=== PATIENT | female | born 1935 | race Caucasian/White ===

== ENCOUNTER 2016-09-26 15:49 | Emergency (ER) | payer MEDICARE ==
[~2016-09-26] VITALS: Wt 56.2 kg
[~2016-09-26 15:49] MED LIST: ATENOLOL25 MG PO; ATENOLOL50 M1 PO; ATENOLOL50 MG PO; B COMPLEX1 EAC1 PO; CLOPIDOGREL75 MG PO; IMDUR SA30 MG PO; LEVOTHYROXIN0.025 MG PO; LEVOTHYROXINE0.05 M1 PO; MELOXICAM15 MG PO; MELOXICAM7.5 MG PO; OMEPRAZOLE DR20 M1 PO; PEPCID20 MG PO; PLAVIX75 M1 PO; PRILOSEC20 M2 PO; PRILOSEC40 M1 PO; VIBRAMYCIN100 MG PO; VITAMIN B-121000 MC1 SL; VITAMIN D50000 I3 PO; VITAMIN D50000 IU PO; ZETIA10 MG PO
== END 2016-09-26 18:18 | disposition home or self-care (01) ==
LOC: ED 15:49
DX: S05.11XA Contusion of eyeball and orbital tissues, right eye, initial encounter (principal); Z88.0 Allergy status to penicillin; Z88.1 Allergy status to other antibiotic agents; Z88.2 Allergy status to sulfonamides; Z79.01 Long term (current) use of anticoagulants; W22.8XXA Striking against or struck by other objects, initial encounter; Y93.89 Activity, other specified; Y92.9 Unspecified place or not applicable; Y99.9 Unspecified external cause status

== ENCOUNTER → 2017-01-07 | Outpatient (CLI) | payer MEDICARE | END | disposition home or self-care (01) | LOC: CT 14:00 | DX: S09.90XA Unspecified injury of head, initial encounter (principal); H53.9 Unspecified visual disturbance; I12.9 Hypertensive chronic kidney disease with stage 1 through stage 4 chronic kidney disease, or unspecified chronic kidney disease; N18.2 Chronic kidney disease, stage 2 (mild); R53.82 Chronic fatigue, unspecified; E03.9 Hypothyroidism, unspecified; E83.52 Hypercalcemia; M11.80 Other specified crystal arthropathies, unspecified site; I25.10 Atherosclerotic heart disease of native coronary artery without angina pectoris; R42 Dizziness and giddiness; X58.XXXA Exposure to other specified factors, initial encounter; Y93.89 Activity, other specified; Y92.89 Other specified places as the place of occurrence of the external cause; Y99.8 Other external cause status ==

== ENCOUNTER 2017-03-09 15:34 | Emergency (ER) | payer MEDICARE ==
[~2017-03-09] VITALS: Ht 152.4 cm; Wt 63.5 kg
[2017-03-09] MEDS ORDERED: ANTIBIOTIC (15:40)
== END 2017-03-09 16:25 | disposition home or self-care (01) ==
LOC: ED 15:34
DX: S00.462A Insect bite (nonvenomous) of left ear, initial encounter (principal); Z88.0 Allergy status to penicillin; Z88.1 Allergy status to other antibiotic agents; Z88.2 Allergy status to sulfonamides; Z79.899 Other long term (current) drug therapy; W57.XXXA Bitten or stung by nonvenomous insect and other nonvenomous arthropods, initial encounter; Y93.9 Activity, unspecified; Y92.9 Unspecified place or not applicable; Y99.9 Unspecified external cause status

== ENCOUNTER 2017-06-10 18:21 | Inpatient (IN) | payer MEDICARE ==
[~2017-06-10] VITALS: Ht 154.9 cm; Wt 59.9 kg
[~2017-06-10 18:21] MED LIST changes: +ANTIBIOTIC; +LEVOTHYROXINE50 MCG PO; -VITAMIN D50000 I3 PO; +VITAMIN D50000 UNIT PO
[2017-06-10 18:25] VITALS: BP 125/65
[2017-06-10 19:09] VITALS: BP 124/64
[2017-06-10 19:21] LABS: BASO # 0.1 10*3/uL (0.0-0.1); BASO % 0.6 % (0.0-1.0); EOS % 0.5 % (1.0-4.0); HEMATOCRIT 38.4 % (37.0-47.0); HEMOGLOBIN 12.7 g/dl (12.0-16.0); LYMPH # 1.1 10*3/uL (1.3-4.4); LYMPH % 14.5 % (27.0-41.0); MEAN CELL VOLUME 99.2 fl (81.0-99.0); MEAN CORPUSCULAR HGB 32.8 pg (27.0-31.0); MEAN CORPUSCULAR HGB CONC 33.1 g/dl (33.0-37.0); MEAN PLATELET VOLUME 10.3 fl (9.6-12.3); MONO # 0.7 10*3/uL (0.1-1.0); MONO % 9.1 % (3.0-9.0); NEUT # 5.8 10*3/uL (2.3-7.9); PLATELET COUNT AUTOMATED 202 10*3/uL (130-400); RED BLOOD COUNT 3.87 10*6/uL (4.10-5.10); WHITE BLOOD COUNT 7.7 10*3/uL (4.8-10.8)
[2017-06-10 19:32] LABS: ACT PARTIAL THROMBO TIME 23.1 SECONDS (20.8-31.5); INTERNATIONAL NORM RATIO 0.9 (2.0-3.5)
[2017-06-10 19:37] VITALS: BP 124/64
[2017-06-10 19:38] LABS: ALKALINE PHOSPHATASE 81 U/L (45-117); BUN 22 mg/dl (7-24); CHLORIDE 107 mmol/L (98-107); CREATININE 1.03 mg/dL (0.55-1.02); MAGNESIUM 2.1 mg/dL (1.5-2.1); POTASSIUM 3.7 mmol/L (3.5-5.1); SGOT/AST 22 IU/L (3-35); SGPT/ALT 24 U/L (12-78); SODIUM 141 mmol/L (136-145); TOTAL PROTEIN 7.4 gm/dL (6.4-8.2)
[2017-06-10 19:41] LABS: TROPONIN I < 0.015 ng/ml (<0.045)
[2017-06-10 20:00] VITALS: BP 121/61
[2017-06-10 20:49] VITALS: BP 132/85
[2017-06-10 21:20] VITALS: BP 121/61
[2017-06-11] VITALS: BP 114/57
--- NOTE | 2017-06-11 02:38 | NUR ---
[facility] WILL NEED TO BE CALLED IN AM TO VERIFY DOSAGE ON VIT D AND WHICH DAY OF THE WEEK SHE TAKES IT.
[2017-06-11 06:36] LABS: BASO % 0.4 % (0.0-1.0); EOS % 0.8 % (1.0-4.0); HEMATOCRIT 33.1 % (37.0-47.0); HEMOGLOBIN 11.1 g/dl (12.0-16.0); LYMPH # 1.7 10*3/uL (1.3-4.4); LYMPH % 33.1 % (27.0-41.0); MEAN CELL VOLUME 98.8 fl (81.0-99.0); MEAN CORPUSCULAR HGB 33.1 pg (27.0-31.0); MEAN CORPUSCULAR HGB CONC 33.5 g/dl (33.0-37.0); MEAN PLATELET VOLUME 9.9 fl (9.6-12.3); MONO # 0.5 10*3/uL (0.1-1.0); NEUT # 2.9 10*3/uL (2.3-7.9); NEUT % 55.5 % (47.0-73.0); PLATELET COUNT AUTOMATED 162 10*3/uL (130-400); RED BLOOD COUNT 3.35 10*6/uL (4.10-5.10); RED CELL DISTRI WIDTH 13.1 % (0-14.5); WHITE BLOOD COUNT 5.2 10*3/uL (4.8-10.8)
[2017-06-11 07:07] LABS: ACT PARTIAL THROMBO TIME 25.5 SECONDS (20.8-31.5)
[2017-06-11 07:10] LABS: ALBUMIN 2.5 gm/dl (3.1-4.5); BUN 18 mg/dl (7-24); CHLORIDE 110 mmol/L (98-107); CHOLESTEROL 165 mg/dL (<200); CREATININE 0.65 mg/dL (0.55-1.02); MAGNESIUM 1.9 mg/dL (1.5-2.1); PHOSPHOROUS 2.7 mg/dL (2.5-4.9); POTASSIUM 3.9 mmol/L (3.5-5.1); SGPT/ALT 17 U/L (12-78); SODIUM 141 mmol/L (136-145); TRIGLYCERIDES 62 mg/dl (<150); VLDL CHOLESTEROL 12 mg/dL (6-40)
[2017-06-11 07:18] LABS: ALKALINE PHOSPHATASE 64 U/L (45-117); FREE T4 1.17 ng/dl (0.76-1.46); HDL CHOLESTEROL 62 mg/dl (40-60); LDL CHOLESTEROL 91 mg/dL (9-159); SGOT/AST 17 IU/L (3-35); THYROID STIM HORMONE (HS) 0.505 uIU/ml (0.358-4.75); TOTAL PROTEIN 6.1 gm/dL (6.4-8.2)
--- NOTE | 2017-06-11 07:47 | NUR ---
[facility] NURSE WAS GIVEN INFORMATION REGARDING NEW CONSULT FOR JÚNIOR SIN ASSISTANT FOOD SERVICE MANAGER WHO IS COVERING FOR DR DUARTE THIS WEEKEND AND STATED SHE WILL NOTIFY HER WHEN SHE MAKES ROUNDS TODAY.
[2017-06-11 07:49] LABS: VITAMIN D, 25-HYDROXY 40.2 ng/mL (30-100)
[2017-06-11 08:00] VITALS: BP 132/78
--- NOTE | 2017-06-11 10:48 | NUR ---
JÚNIOR SIN BOILER OR ENGINE OPERATOR FOR DR DUARTE IN TO ASSESS PT.
[2017-06-11 12:00] VITALS: BP 135/73
--- NOTE | 2017-06-11 14:59 | NUR ---
PT ANXIOUS ABOUT POSSIBLY BEING DISCHARGED TODAY. PT NOW STATES THAT HER ANKLE IS HURTING TO MUCH AND THAT SHE CAN NOT WALK ON IT WELL AT THIS TIME. SHE ALSO WAS ASKING IF HER MELOXICAM CAN BE REORDERED SO SHE CAN TAKE IT NOW. I CALLED AND SPOKE WITH DR ERWIN AND MADE HIM AWARE OF HER CONCERNS.
[2017-06-11] MEDS ORDERED: CRUTCHES (15:32)
--- NOTE | 2017-06-11 15:44 | NUR ---
INSTRUCTED PT ON USE OF CRUTCHES WHICH SHE STATES SHE ALREADY KNOWS HOW TO USE. PT NOW STATES THAT SHE WOULD ALSO LIKE TO HAVE HOME HEALTH SERVICES AT HOME. I NOTIFIED DR ERWIN OF THIS.
[2017-06-11 16:00] VITALS: BP 126/61
--- NOTE | 2017-06-11 17:28 | NUR ---
PT DISCHARGED AT THIS TIME WITH BROTHER VIA WHEELCHAIR TO HOME.
--- NOTE | 2017-06-11 17:28 | NUR ---
Discharge instructions reviewed with patient/family. Patient receptive and verbalizes understanding. Follow-up care arranged. Written instructions given to patient/family. ION SEPULVEDA
== END 2017-06-11 17:28 | disposition home or self-care (01) | DRG 922 ==
LOC: ED 18:21 → 5E 20:53 → EDHOLD 20:53 → 5E 21:02
PROVIDERS: Internal Medicine; Student in an Organized Health Care Education/Training Program; ADMIT Internal Medicine
DX: T67.1XXA Heat syncope, initial encounter (principal); N17.0 Acute kidney failure with tubular necrosis; E44.0 Moderate protein-calorie malnutrition; E78.5 Hyperlipidemia, unspecified; E03.9 Hypothyroidism, unspecified; I10 Essential (primary) hypertension; E11.9 Type 2 diabetes mellitus without complications; M10.9 Gout, unspecified; K21.9 Gastro-esophageal reflux disease without esophagitis; X58.XXXA Exposure to other specified factors, initial encounter; E86.0 Dehydration; S93.401A Sprain of unspecified ligament of right ankle, initial encounter; I25.10 Atherosclerotic heart disease of native coronary artery without angina pectoris; Z88.0 Allergy status to penicillin; Z88.2 Allergy status to sulfonamides; Z88.1 Allergy status to other antibiotic agents; Z79.899 Other long term (current) drug therapy; Z87.440 Personal history of urinary (tract) infections; Z95.818 Presence of other cardiac implants and grafts; Z90.710 Acquired absence of both cervix and uterus; Z82.49 Family history of ischemic heart disease and other diseases of the circulatory system; Z83.3 Family history of diabetes mellitus; Z84.89 Family history of other specified conditions; Y93.89 Activity, other specified; Y92.89 Other specified places as the place of occurrence of the external cause; Y99.8 Other external cause status; Z68.24 Body mass index [BMI] 24.0-24.9, adult

== ENCOUNTER 2017-06-13 15:19 | Inpatient (IN) | payer MEDICARE ==
[~2017-06-13] VITALS: Ht 154.9 cm; Wt 67.6 kg
--- NOTE | ~2017-06-13 | PR ---
[place], [place] PROGRESS NOTE [id number] UNIT #: [id number] ROOM: 503 DOCTOR: JENNIFER TORRES MD BIRTHDATE: [birth year] DOS: 06/16/2017 SUBJECTIVE: The patient is sitting up in bed, does not appear in distress. Denies any ongoing complaint. Slight improvement in overall symptoms. OBJECTIVE: VITAL SIGNS: Blood pressure 143/62, heart rate 60, respiratory rate of 14, temperature 98. NECK: Good upstroke, no bruit. HEART: S1, S2, no rub. LUNGS: Clear to auscultation. EXTREMITIES: Lower extremities, no edema. LABORATORY DATA: White count 5.5, hemoglobin 10.2, potassium 4.4. GFR more than 60%. ASSESSMENT AND PLAN: Presentation with a whole host of nonspecific complaints that is quite recurrent since [address] Meyer's notes. Specifically, the patient does not have any cardiac complaints such as chest pain, chest pressure or any symptomatic palpitation. I doubt there is any contribution from the heart point of view to the patient's complaint. At this stage, I would like to continue with same management and we will prefer the patient to follow up with Dr. Meyer as an outpatient within 2-4 weeks upon discharge. Should the patient requires, we will be happy to see her here in our clinic in [facility]. No further cardiac testing at this time. JENNIFER TORRES MD CM:PNTRANS 14 [phone] JENNIFER TORRES MD 06/16/172156 interface
--- NOTE | ~2017-06-13 | CON ---
[place], [place] REPORT OF CONSULTATION [id number] UNIT #: [id number] ROOM: 503 DOCTOR: CLAYTON VAZQUEZ ED.D (APRIL) BIRTHDATE: [birth year] DOS: 06/15/2017 HISTORY OF PRESENT ILLNESS: The patient is an 82-year-old female, referred by the hospitalist for competency evaluation. At the present time, this patient is on the 5th floor at [facility]. She states she is and has no children. 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 Family physician is Dr. Mckee in [place] and her medical history is pertinent for coronary artery disease, diabetes mellitus, hypertension, GERD, normocytic anemia, malnutrition. Her medications include atenolol, vitamin D, Plavix, Zetia, meloxicam and omeprazole. This patient does not have any substance abuse issues whatsoever. She was awake, alert and oriented in all three spheres. She denies any suicidal ideation or plan and had no delusional thoughts whatsoever. She has some obsessive compulsive disorder issues along with some minor depression, but overall she does fairly well. She does have assistance at her home. She apparently has some cardiac issues going on, which have caused her to feel as though she was going to pass out. They are going to address those here in the hospital to Cardiology. She is certainly competent to make informed healthcare decisions at this time. Again, I have known this patient for many years and her behavior has not changed, but she does have some atypical behaviors and thoughts, but she is not psychotic whatsoever. DIAGNOSES: 1. Obsessive-compulsive disorder. 2. Persistent depressive disorder. RECOMMENDATIONS: In my opinion, this patient is competent to make informed healthcare decisions. Thank you very much for this consult. CLAYTON VAZQUEZ ED.D CM:CONSTR:REPORT OF CONSULTATION 1121 06/15/17 7770 interface
--- NOTE | ~2017-06-13 | CON ---
[place], [place] REPORT [facility] CON[facility]ATION [id number] UNIT #: [id number] ROOM: 503 DOCTOR: BRIAN DANIELLEJENNIFER BIRTHDATE: [birth year] DOS: 06/15/2017 REASON FOR CONSULTATION: Syncope. REQUESTING PHYSICIAN: Dr. Stephen Souza. ASSESSMENTS: 1. Current presentation for dizziness, lightheadedness. 2. Unstable gait. 3. High tendency for falls with no christopher loss of consciousness. 4. No specific cardiac complaint of chest pain, chest pressure, heaviness or tightness. 5. Recent presentation to the Emergency Room with similar complaints. 6. Fatigue and weakness. 7. History of known coronary artery disease, single vessel disease seen and evaluated by Dr. Meyer (status post percutaneous transluminal coronary angioplasty and stent placement in right coronary artery in February 1998). 8. Diabetes. 9. Hyperlipidemia. 10. Reported episode of syncope since April [address] Meyer due to orthostatic hypotension and vasovagal. 11. Recurrent syncope reported in May [address] Meyer. 12. Known history of Meniere's disease. 13. Status post esophageal dilatation in May 2010. PLAN: 1. Cycle cardiac enzymes. 2. Check D-dimer 3. Proceed with an echocardiogram. 4. Continue current medical regimen. 5. No further cardiac testing at this time. 6. Consider physical therapy and rehabilitation. 7. Early followup with Dr. Meyer or our cardiac clinic here in [place] within 2-4 weeks upon discharge. HISTORY OF PRESENT ILLNESS: The patient is a pleasant 82-year-old female well known to our group through Dr. Meyer. The patient apparently has been seen and evaluated with him since 2009. She has extensive medical history with recurrent evaluation for syncope, unsteady gait and coronary artery disease that was stented back in 1997 in the [facility]. Apparently, the patient has recurrent presentation with dizziness, lightheadedness along with unsteady gait that also be reported previously through Dr. Meyer's notes. At no time, the patient had any complaint of chest pain, chest pressure, heaviness or tightness. No left arm pain, jaw pain or back pain. She has very limited functional capacity. The patient is quite a poor historian and quite difficult to obtain exact detailed history regarding her symptoms. No fever, no chills, no night sweats. Maintain good appetite. No weight loss. The patient claims she has no PND, orthopnea or pedal edema. No symptomatic palpitation or any associated dizziness, lightheadedness or near syncope. [place], [place] REPORT OF CONSULTATION NAME: PEPITO LEWIS UNIT #: [id number] ROOM: [facility] DOCTOR: JENNIFER TORRES MD BIRTHDATE: [birth year] PAST MEDICAL HISTORY: As detailed in my assessment. SOCIAL HISTORY: No current tobacco, alcohol or illicit drug abuse. FAMILY HISTORY: Not applicable in view of the patient's age. CURRENT MEDICATIONS: Ditropan, meclizine, Prilosec, Mobic, Synthroid, Lovenox, Zetia, Plavix, Tenormin, Restoril, Zofran, bisacodyl, Fortuna and Tylenol. ALLERGIES: THE PATIENT IS ALLERGIC TO PENICILLIN, SULFA AND ERYTHROMYCIN. REVIEW OF SYSTEMS: The patient currently denies any headache, diplopia, or blurry vision. No fever, no chills, no night sweats. No abdominal pain, no bright blood per rectum or tarry stools. The patient admits to joint pain and muscular pain. Admits to anxiety and depression. No polyuria, no polydipsia, no skin rash. PHYSICAL EXAMINATION: GENERAL: The patient is alert, oriented x3, quite pleasant, in no apparent distress. VITAL SIGNS: Blood pressure 143/62, heart rate 60, respiratory rate of 14 and temperature 98. HEENT: Extraocular muscles intact. Pupils equal, round, reactive to light. Conjunctivae mild pallor. Throat, no petechiae. NECK: Good carotid upstroke. Faint bruit could be heard. HEART: S1, S2 with holosystolic murmur in the left upper sternal border. No rub or sternal heave. CHEST AND BACK: No deformities. LUNGS: Decreased air movement, but no christopher wheezing or rales. ABDOMEN: Obese, soft, nontender, present bowel sounds. LOWER EXTREMITIES: There is no significant edema. NEUROLOGIC: Grossly nonfocal. SKIN: No significant rash. LABORATORY DATA: White count is 3.6, hemoglobin 11.8, potassium 3.9. GFR more than 60. Total cholesterol 147, LDL 78, HDL is 59. Normal thyroid function. Troponin less than 0.015 x 4. JENNIFER TORRES MD CM:CONSTR:REPORT OF CONSULTATION 1913 06/17/17 0907 interface
--- NOTE | ~2017-06-13 | EKG ---
[place], [place] ELECTROCARDIOGRAM REPORT NAME: PEPITO LEWIS UNIT #: [id number] ROOM: 503 DOCTOR: CAMILO NAVARRETE MD BIRTHDATE: [birth year] DOS: 06/13/2017 TIME: 15:54:32 RATE AND RHYTHM: Normal sinus rhythm at 95 beats per minute. PA interval 129 milliseconds. QRS duration 78 milliseconds. Corrected QT interval 445 milliseconds, QRS axis 2. IMPRESSION: Normal sinus rhythm, normal EKG. CAMILO NAVARRETE MD CM:EKGRPT:ELECTROCARDIOGRAM REPORT [id number] 1214 CAMILO NAVARRETE MD
--- NOTE | ~2017-06-13 | PR ---
[place], [place] PROGRESS NOTE NAME: PEPITO LEWIS [facility] #: [id number] UNIT #: [id number] ROOM: 503 DOCTOR: KYLE MARIE MD BIRTHDATE: [birth year] DOS: 06/19/2017 SUBJECTIVE: The patient has been admitted to the hospital with syncopal attack, dehydration, delusion, auditory hallucination and dizziness with psychotic disorder and is gradually getting better. The patient is conscious, alert, and oriented, and she is ambulating, eating fairly good and does not seem to be in any distress. She is eating satisfactorily and she is drinking satisfactorily. OBJECTIVE: VITAL SIGNS: Her blood pressure today is 131/65, pulse 67, respirations 20, temperature 98.7. CHEST: Clear. HEART: Regular. ABDOMEN: Soft. There is no acute distress and she is progressing satisfactorily. KYLE MARIE MD CM:PNTRANS [id number] KYLE MARIE MD 06/20/17 0526 interface
--- NOTE | ~2017-06-13 | CON ---
[place], [place] REPORT OF CONSULTATION [id number] UNIT #: [id number] ROOM: 503 DOCTOR: GLORY DUARTE MD BIRTHDATE: [birth year] DOS: 06/17/2017 CHIEF COMPLAINT: "You are the one that is going to set me free." HISTORY OF PRESENT ILLNESS: This is an 82-year-old white female admitted due to a syncopal episode. The patient apparently has a lengthy psychiatric history and to the best that I can ascertain patient suffers from obsessive compulsive disorder. The patient was seen earlier by Dr. Jarett Larson, psychologist, who deemed her competent and did also diagnose her with the diagnosis of obsessive compulsive disorder and dysthymia. From a psychiatric perspective, the patient gives a rather long history of mild symptoms. Her most pressing issue is her tendency to be obsessive compulsive. There is no suicidality, homicidality, self-injurious thoughts. Cognitive function seems to be fully intact. PAST MEDICAL HISTORY: Remarkable for hypertension, vitamin D deficiency, hyperlipidemia, GERD and the syncopal episodes. MENTAL STATUS: She is alert and oriented to person, place and time. Mood is mildly depressed. Affect is within normal limits. She is nearly pressured in her speech and she is extremely circumstantial giving fine details and re-circulating back to get even more details regarding her history of who she has seen, when she saw them, what she did in each aspect of her life. There are no gross psychotic symptoms noted. No auditory or visual hallucinations noted. No christopher shay or hypomania and as mentioned previously, her memory does seem to be intact. DIAGNOSIS: Obsessive compulsive disorder and dysthymic disorder. PLAN: I did not have the opportunity to discuss the possibility of starting medication with her, however, my thought on this is that she would be resistant. She does follow with Dr. Horacio Martin, a geriatric doctor in the [facility]. I would suggest that she just continue followup with him. There are no grounds at this point for inpatient hospitalization. GLORY DUARTE MD CM:CONSTR:REPORT OF CONSULTATION 1105 06/17/17 2300 interface
--- NOTE | ~2017-06-13 | PR ---
[place], [place] PROGRESS NOTE NAME: PEPITO LEWIS [facility] #: [id number] UNIT #: [id number] ROOM: 503 DOCTOR: KYLE MARIE MD BIRTHDATE: [birth year] DOS: SUBJECTIVE: The patient has been admitted to the hospital with syncopal attack, dehydration, delusions, hallucinations and dizziness with articular regurgitation and internal carotid artery stenosis. She is conscious, alert and oriented, does not seem to be in any distress. She is eating very well and she slept very comfortably last night and has been seen by human resource management instructor and ruled out any acute cardiac problem and has also been seen by Dr. Pastor who has diagnosed with obsessive compulsive disorder and dysthymic disorder, but has not suggested any new medication. OBJECTIVE: VITAL SIGNS: Her blood pressure is 151/78, pulse 65, respirations 20, temperature 98.2. CHEST: Clear. HEART: Regular. ABDOMEN: Soft. EXTREMITIES: Having splint on the right foot and doing fairly good. We will continue with the present treatment and follow her properly. KYLE MARIE MD CM:PNTRANS 0750 0 KYLE MARIE MD 06/18/17920 interface
[~2017-06-13 15:19] MED LIST changes: +CRUTCHES
[2017-06-13 15:25] VITALS: BP 115/62
[2017-06-13 16:00] VITALS: BP 145/74
[2017-06-13 16:16] LABS: BASO % 0.4 % (0.0-1.0); EOS % 0.6 % (1.0-4.0); HEMATOCRIT 36.2 % (37.0-47.0); HEMOGLOBIN 11.8 g/dl (12.0-16.0); LYMPH # 1.3 10*3/uL (1.3-4.4); LYMPH % 18.8 % (27.0-41.0); MEAN CELL VOLUME 99.5 fl (81.0-99.0); MEAN CORPUSCULAR HGB 32.4 pg (27.0-31.0); MEAN CORPUSCULAR HGB CONC 32.6 g/dl (33.0-37.0); MEAN PLATELET VOLUME 10.7 fl (9.6-12.3); MONO # 0.7 10*3/uL (0.1-1.0); MONO % 10.1 % (3.0-9.0); NEUT # 4.8 10*3/uL (2.3-7.9); NEUT % 69.8 % (47.0-73.0); PLATELET COUNT AUTOMATED 197 10*3/uL (130-400); RED BLOOD COUNT 3.64 10*6/uL (4.10-5.10); RED CELL DISTRI WIDTH 13.1 % (0-14.5); WHITE BLOOD COUNT 6.9 10*3/uL (4.8-10.8)
[2017-06-13 16:25] LABS: ACT PARTIAL THROMBO TIME 27.5 SECONDS (20.8-31.5); INTERNATIONAL NORM RATIO 0.9 (2.0-3.5)
[2017-06-13 16:33] LABS: ALBUMIN 2.8 gm/dl (3.1-4.5); ALKALINE PHOSPHATASE 77 U/L (45-117); BUN 19 mg/dl (7-24); CHLORIDE 104 mmol/L (98-107); CREATININE 0.73 mg/dL (0.55-1.02); MAGNESIUM 2.1 mg/dL (1.5-2.1); SGOT/AST 20 IU/L (3-35); SGPT/ALT 15 U/L (12-78); SODIUM 137 mmol/L (136-145); TOTAL PROTEIN 7.7 gm/dL (6.4-8.2)
[2017-06-13 16:36] LABS: TROPONIN I < 0.015 ng/ml (<0.045)
[2017-06-13 18:10] LABS: BILIRUBIN 1+ (NEGATIVE); BLOOD TRACE-LYSED (NEGATIVE); CLARITY SL CLOUDY (CLEAR); COLOR YELLOW (YELLOW); GLUCOSE NEGATIVE (NEGATIVE); KETONE 3+ (NEGATIVE); LEUKO ESTERASE TRACE (NEGATIVE); NITRITE NEGATIVE (NEGATIVE); PH 5.5 (5.0-9.0); SPECIFIC GRAVITY 1.025 (1.005-1.030); UROBILINOGEN 0.2 E.U./dl (0.2-1.0)
[2017-06-13 18:29] LABS: EPITHELIAL CELLS 0-2; RBC 0-2 rbc/hpf (0-2)
[2017-06-13 18:30] LABS: BACTERIA 1+; MUCOUS 1+
--- NOTE | 2017-06-13 20:13 | NUR ---
PT UP TO BATHROOM WITH ASSIST.
[2017-06-13 21:00] VITALS: BP 145/74
--- NOTE | 2017-06-13 21:00 | NUR ---
A 82, admitted to , under the services of CAMILO Rodriguez MD with a diagnosis of DIZZINESS. Chief complaint is DIZZINESS. Patient arrived via WHEELCHAIR from ER. Monitor applied. Initial assessment completed. Vital signs taken and recorded. CAMILO RODRIGUEZ MD notified of admission to the unit. Orders received. See assessment for past medical history, medications and allergies. Patient and/or family oriented to unit. [facility] policy reviewed. Clothing/patient valuable form completed. KENTON ALFARO
--- NOTE | 2017-06-13 21:20 | NUR ---
PATIENT DENIES FLU VACCINATION.
[2017-06-14] VITALS (7 sets, daily range): BP systolic 133–150; BP diastolic 63–79
--- NOTE | 2017-06-14 03:13 | NUR ---
PT C/O H/A REQUESTEED AND ADMINSITERED TYLENOL 650MG PO PRN PER ORDERS WILL MONITOR EFFECTS
[2017-06-14 07:16] LABS: BASO % 0.6 % (0.0-1.0); EOS # 0.1 10*3/uL (0.0-0.4); EOS % 1.2 % (1.0-4.0); HEMATOCRIT 31.4 % (37.0-47.0); HEMOGLOBIN 10.4 g/dl (12.0-16.0); LYMPH # 1.6 10*3/uL (1.3-4.4); LYMPH % 32.4 % (27.0-41.0); MEAN CELL VOLUME 98.1 fl (81.0-99.0); MEAN CORPUSCULAR HGB 32.5 pg (27.0-31.0); MEAN CORPUSCULAR HGB CONC 33.1 g/dl (33.0-37.0); MEAN PLATELET VOLUME 10.9 fl (9.6-12.3); MONO # 0.5 10*3/uL (0.1-1.0); MONO % 10.7 % (3.0-9.0); NEUT # 2.7 10*3/uL (2.3-7.9); NEUT % 54.9 % (47.0-73.0); PLATELET COUNT AUTOMATED 185 10*3/uL (130-400); RED CELL DISTRI WIDTH 13.2 % (0-14.5); WHITE BLOOD COUNT 4.9 10*3/uL (4.8-10.8)
[2017-06-14 07:53] LABS: ALBUMIN 2.3 gm/dl (3.1-4.5); ALKALINE PHOSPHATASE 64 U/L (45-117); BUN 15 mg/dl (7-24); CHLORIDE 108 mmol/L (98-107); CHOLESTEROL 147 mg/dL (<200); CREATININE 0.56 mg/dL (0.55-1.02); FREE T4 1.34 ng/dl (0.76-1.46); HDL CHOLESTEROL 59 mg/dl (40-60); LDL CHOLESTEROL 78 mg/dL (9-159); MAGNESIUM 2.1 mg/dL (1.5-2.1); PHOSPHOROUS 3.2 mg/dL (2.5-4.9); POTASSIUM 3.9 mmol/L (3.5-5.1); SGOT/AST 17 IU/L (3-35); SGPT/ALT 13 U/L (12-78); SODIUM 140 mmol/L (136-145); TOTAL PROTEIN 6.4 gm/dL (6.4-8.2); TRIGLYCERIDES 48 mg/dl (<150); VLDL CHOLESTEROL 10 mg/dL (6-40)
[2017-06-14 07:54] LABS: ACT PARTIAL THROMBO TIME 28.4 SECONDS (20.8-31.5); INTERNATIONAL NORM RATIO 0.9 (2.0-3.5)
[2017-06-14 07:58] LABS: THYROID STIM HORMONE (HS) 0.982 uIU/ml (0.358-4.75)
[2017-06-14 08:01] LABS: VITAMIN D, 25-HYDROXY 33.5 ng/mL (30-100)
--- NOTE | 2017-06-14 08:30 | NUR ---
Guest Laundry Attendant in to talk to patient. Patient states lives at HOME IN 3 STORY ALONE with . There are 1 steps in the home. Physician: DR NAVARRETE Pharmacy: Home health services: REQUESTS [facility] NURSE AND PT Patient's level of ADLs: MINIMAL ASSIST Patient has working utilities: YES DME: NILDA Follow-up physician's appointment after d/c: PREFERS TO MAKE HER OWN APPT Does patient want to access PORTAL?: Discharge plan HOME WITH HOME HEALTH. SANDRINE PHILLIPS DISCUSSED SNF STAY PT JUST WENT HOME FEW DAYS AGO. REFUSES AND ACCEPTS HOME HEALTH AND CHOOSES [facility]
--- NOTE | 2017-06-14 08:30 | NUR ---
PT ALSO HAS PRIVATE HELP FOR LAWN WORK AND HOUSE WORK. [facility] HAS 3 CLEANING LADIES AND A ENERGY AND CONSERVATION TECHNICIAN!
--- NOTE | 2017-06-14 12:31 | NUR ---
DR. CARLSON NOTIFIED THAT PATIENTS ORTHOS WERE NEG. NO CONCERNS OR C/O OF DIZZINESS FROM PATIENT.
--- NOTE | 2017-06-14 15:20 | NUR ---
PATIENT CONSULT CALLED TO DR. DUARTE. CLARIBEL FROM HIS OFFICE TOOK PATIENT INFORMATION AND STATED SHE WOULD PASS IT ON TO DR. DUARTE. I STATED TO HAVE DR. DUARTE CALL ME FOR ANY QUESTIONS. NO CONCERNS AT THIS TIME.
--- NOTE | 2017-06-14 15:24 | NUR ---
DR. VAZQUEZ CALLED AND NOTIFIED OF CONSULT. HE STATED HE WOULD BE IN TOMORROW TO SEE THE PATIENT. DR. DUARTE CALLED AND NOTIFIED THAT CONSULT CALL WAS A MISTAKE. NO OTHER CONCERNS.
[2017-06-15] VITALS: BP 133/61
--- NOTE | 2017-06-15 00:42 | NUR ---
24 HR chart check completed.
[2017-06-15 07:02] LABS: BASO % 0.6 % (0.0-1.0); EOS # 0.1 10*3/uL (0.0-0.4); HEMATOCRIT 32.1 % (37.0-47.0); HEMOGLOBIN 10.2 g/dl (12.0-16.0); LYMPH # 1.8 10*3/uL (1.3-4.4); LYMPH % 32.5 % (27.0-41.0); MEAN CORPUSCULAR HGB 32.3 pg (27.0-31.0); MEAN CORPUSCULAR HGB CONC 31.8 g/dl (33.0-37.0); MEAN PLATELET VOLUME 11.1 fl (9.6-12.3); MONO # 0.5 10*3/uL (0.1-1.0); MONO % 9.2 % (3.0-9.0); NEUT % 55.5 % (47.0-73.0); PLATELET COUNT AUTOMATED 175 10*3/uL (130-400); RED BLOOD COUNT 3.16 10*6/uL (4.10-5.10); RED CELL DISTRI WIDTH 13.2 % (0-14.5); WHITE BLOOD COUNT 5.5 10*3/uL (4.8-10.8)
[2017-06-15 07:08] LABS: MEAN CELL VOLUME 101.6 fl (81.0-99.0)
[2017-06-15 07:13] LABS: BUN 15 mg/dl (7-24); CHLORIDE 111 mmol/L (98-107); CREATININE 0.53 mg/dL (0.55-1.02); POTASSIUM 4.4 mmol/L (3.5-5.1); SODIUM 141 mmol/L (136-145)
[2017-06-15 08:00] VITALS: BP 133/64
--- NOTE | 2017-06-15 10:11 | NUR ---
AFTER SEVERAL INSTRUCTIONS AND EDUCATION OF MEDICATIONS DUE THIS AM, PT REFUSED ALL 10 AM MEDS
--- NOTE | 2017-06-15 11:16 | NUR ---
DR. TORRES'S OFFICE NOTIFIED OF CONSULT.
[2017-06-15 12:00] VITALS: BP 130/65
[2017-06-15 14:39] LABS: BILIRUBIN NEGATIVE (NEGATIVE); BLOOD NEGATIVE (NEGATIVE); CLARITY CLEAR (CLEAR); COLOR YELLOW (YELLOW); GLUCOSE NEGATIVE (NEGATIVE); KETONE NEGATIVE (NEGATIVE); LEUKO ESTERASE NEGATIVE (NEGATIVE); NITRITE NEGATIVE (NEGATIVE); SPECIFIC GRAVITY <= 1.005 (1.005-1.030); UROBILINOGEN 0.2 E.U./dl (0.2-1.0)
[2017-06-15 14:52] LABS: BACTERIA TRACE; MUCOUS 1+; RBC 0-2 rbc/hpf (0-2)
--- NOTE | 2017-06-15 15:59 | NUR ---
PHYSICAL THERAPY Physical Therapy Evaluation completed this date. See eval document for complete details. Will begin PT intervention to address impairments of muscle weakness, decreased functional mobility I, and difficulty ambulating. Recommend SNF on d/c as pnt lives alone in a multi-story home[place] [address] based on chart review and PT evaluation. Staci Martinez, PT
[2017-06-15 16:00] VITALS: BP 140/73
--- NOTE | 2017-06-15 17:50 | NUR ---
MEDICATED WITH TYLENOL FOR HEADACHE SHE RATES A 6 ON THE PAIN SCALE.
[2017-06-15 20:00] VITALS: BP 132/54
[2017-06-16] VITALS: BP 153/73
--- NOTE | 2017-06-16 01:12 | NUR ---
24 HR chart check completed.
[2017-06-16 08:00] VITALS: BP 140/70
--- NOTE | 2017-06-16 09:00 | NUR ---
case management visits with patient, master planner will notify [facility] when patient is medically stable for discharge
--- NOTE | 2017-06-16 09:17 | NUR ---
PHYSICAL THERAPY Lainey was seen this AM 1:1 for her physical therapy session. Transfer supine/sit CG X 1, sitting balance supervision x 1, while putting on her shoes with right ankle brane. Sit/stand and standing balance with wheeled walker MIN A X 1, Pt has IV. Gait only 24' X 1, and wanting to go back to bed at this. End with act Ex to bilateral LE of marching, LAQ's, and ankle pumps working in 20 reps each. Pt's room needed prepared before her therapy gait, there was no LOB with this gait. YARA DOWNING RESEARCH ANALYST.
[2017-06-16 12:00] VITALS: BP 124/57
--- NOTE | 2017-06-16 14:41 | NUR ---
NOTIFIED OF CONSULT AND WILL BE IN TO SEE THE PATIENT TOMORROW.
--- NOTE | 2017-06-16 15:30 | NUR ---
Occupational Therapy evaluation completed this date on with full eval to follow. Precautions include obsessive compulsive disorder, impulsive, RLE brace, fall risk d/t impulsivity, low complexity level 60321. Recommend no further OT at this time and return to home at [facility]. Thank you for this referral. Miryam Jalloh OTR/l
[2017-06-16 16:00] VITALS: BP 143/62
[2017-06-16 20:00] VITALS: BP 128/68
[2017-06-17] VITALS: BP 152/67
--- NOTE | 2017-06-17 00:05 | NUR ---
24 HR chart check completed.
[2017-06-17 04:00] VITALS: BP 146/66
[2017-06-17 06:26] LABS: BASO % 0.5 % (0.0-1.0); EOS # 0.1 10*3/uL (0.0-0.4); EOS % 1.6 % (1.0-4.0); HEMOGLOBIN 10.8 g/dl (12.0-16.0); LYMPH # 1.4 10*3/uL (1.3-4.4); LYMPH % 24.7 % (27.0-41.0); MEAN CELL VOLUME 99.7 fl (81.0-99.0); MEAN CORPUSCULAR HGB 32.6 pg (27.0-31.0); MEAN CORPUSCULAR HGB CONC 32.7 g/dl (33.0-37.0); MEAN PLATELET VOLUME 10.8 fl (9.6-12.3); MONO # 0.5 10*3/uL (0.1-1.0); NEUT # 3.6 10*3/uL (2.3-7.9); NEUT % 63.8 % (47.0-73.0); PLATELET COUNT AUTOMATED 200 10*3/uL (130-400); RED BLOOD COUNT 3.31 10*6/uL (4.10-5.10); RED CELL DISTRI WIDTH 13.1 % (0-14.5); WHITE BLOOD COUNT 5.6 10*3/uL (4.8-10.8)
[2017-06-17 06:42] LABS: BUN 12 mg/dl (7-24); CHLORIDE 108 mmol/L (98-107); CREATININE 0.63 mg/dL (0.55-1.02); POTASSIUM 4.4 mmol/L (3.5-5.1); SODIUM 141 mmol/L (136-145)
[2017-06-17 08:00] VITALS: BP 142/66
--- NOTE | 2017-06-17 10:31 | NUR ---
PHYSICAL THERAPY Lainey seen this AM 1:1 for her therapy session. Pt very slow with everything and is a "talked". Transfer supine/sit CG X 1, with wanting to put her shoes on herself, brace on her right shoe but got then on. Sit/stand up on wheeled walker standing balance MIN A X 1. Followed by gait total 120' X 1, MIN/MOD ARABIC TEACHER X 1, with W/W, cues for gait, walker, turn safety. Pt not safe up ambulating independent. Pt with call light phone and her aid in to make her bed, treatment tiem 24 min. YARA DOWNING BACK ROLLER.
[2017-06-17 12:00] VITALS: BP 150/80
[2017-06-17 16:00] VITALS: BP 127/47
[2017-06-17 20:00] VITALS: BP 119/56
--- NOTE | 2017-06-17 20:00 | NUR ---
ASSUMED CARE OF PATIENT. ASSESSMENT COMPLETE. RESTING IN BED. EDUCATION PROVIDED ON MEDICATIONS PER PT REQUEST. PT APPEARS ANXIOUS. TEST RESULTS REVIEWED WITH PATIENT AT THIS TIME WELL. CALL LIGHT IN REACH. WILL CONTINUE TO MONITOR.
[2017-06-18] VITALS: BP 151/78
[2017-06-18 04:00] VITALS: BP 152/80
[2017-06-18 08:00] VITALS: BP 160/58
--- NOTE | 2017-06-18 08:43 | NUR ---
PATIENT RESFUSED ZETIA THIS AM. STATES SHE TOOK HER OWN PILL.
[2017-06-18 12:00] VITALS: BP 131/67
--- NOTE | 2017-06-18 14:03 | NUR ---
PATIENT RESTING. REFUSED SOME OF AM MEDS.
[2017-06-18 16:00] VITALS: BP 136/53
[2017-06-18 20:00] VITALS: BP 126/65
--- NOTE | 2017-06-18 20:30 | NUR ---
PATIENT OOB IN CHAIR. STATES SHE FEELS MUCH BETTER THAN SHE DID LAST NIGHT. DENIES PAIN AT THIS TIME. SHE SAYS SHE IS MUCH HAPPIER WITH HER MEDICATIONS NOW AND REALIZED THAT SHE NEEDS TO LISTEN TO THE NURSES AND DOCTORS AND TAKE THE PILLS WHEN THEY ARE SCHEDULED. NO VOICED COMPLAINTS AT THIS TIME. CALL LIGHT IS IN REACH. WILL MONITOR.
[2017-06-19] VITALS: BP 131/86
--- NOTE | 2017-06-19 02:30 | NUR ---
C/O HEADACHE RATING A 5, MEDICATED WITH TYLENOL PO PER PRN ORDER. CALL LIGHT WITHIN REACH. WILL MONITOR FOR EFFECTIVENESS
--- NOTE | 2017-06-19 03:30 | NUR ---
PATIENT STATES EARLIER TYLENOL WAS SOMEWHAT EFFECTIVE. SHE STILL HAS A HEADACHE BUT IT IS NOT BAD.
--- NOTE | 2017-06-19 03:50 | NUR ---
PATIENT RESTING QUIETLY. C/O A SLIGHT HEADACHE WHICH SHE HAS PREVIOUSLY BEEN MEDICATED FOR AND DOES NOT WANT ANYTHING ELSE FOR IT RIGHT NOW. NO FURTHER COMPLAINTS. CALL LIGHT IS IN REACH. WILL MONITOR.
--- NOTE | 2017-06-19 06:23 | NUR ---
NO ACUTE EVENTS OVER NIGHT. SHE SLEPT THROUGHOUT SHIFT WITH ONLY C/O HEADACHE. CURRENTLY RESTING IN BED. RESPIRATIONS EASY/REGULAR. NO SXS OF DISTRESS. CALL LIGHT IN REACH.
[2017-06-19 08:00] VITALS: BP 146/60
--- NOTE | 2017-06-19 08:00 | NUR ---
RESTING WITH NO COMPLAINTS.
--- NOTE | 2017-06-19 10:00 | NUR ---
AM MEDS TAKEN.
[2017-06-19 12:00] VITALS: BP 143/73
[2017-06-19 16:00] VITALS: BP 125/60
--- NOTE | 2017-06-19 17:41 | NUR ---
Patient resting quietly with no c/o discomfort. Respirations easy and regular. Vital signs stable. No overt distress. SCHUYLER HARRISON
[2017-06-19 20:00] VITALS: BP 133/67
[2017-06-20] VITALS: BP 155/68
--- NOTE | 2017-06-20 03:22 | NUR ---
PATIENT ASLEEP IN BED AT THIS TIME. RESPIRATIONS EASY, NO S/S OF DISTRESS NOTED. ON ROOM AIR. WILL CONTINUE TO MONITOR.
[2017-06-20 06:20] LABS: BASO % 0.5 % (0.0-1.0); EOS # 0.2 10*3/uL (0.0-0.4); EOS % 2.9 % (1.0-4.0); HEMATOCRIT 36.4 % (37.0-47.0); HEMOGLOBIN 12.1 g/dl (12.0-16.0); LYMPH # 2.1 10*3/uL (1.3-4.4); MEAN CELL VOLUME 100.3 fl (81.0-99.0); MEAN CORPUSCULAR HGB 33.3 pg (27.0-31.0); MEAN CORPUSCULAR HGB CONC 33.2 g/dl (33.0-37.0); MEAN PLATELET VOLUME 10.3 fl (9.6-12.3); MONO # 0.6 10*3/uL (0.1-1.0); NEUT % 51.1 % (47.0-73.0); PLATELET COUNT AUTOMATED 242 10*3/uL (130-400); RED BLOOD COUNT 3.63 10*6/uL (4.10-5.10); RED CELL DISTRI WIDTH 13.2 % (0-14.5); WHITE BLOOD COUNT 5.9 10*3/uL (4.8-10.8)
[2017-06-20 08:00] VITALS: BP 164/62
--- NOTE | 2017-06-20 08:45 | NUR ---
PHYSICAL THERAPY Lainey was seen this AM 1:1 for her therapy session and doing better then last Tuesday. Pt was sitting up indepenedent on the side of her bed shoes on and ready to gait. Transfer sit/stand and up on wheeled walker MIN A X 1. Then gait total 230' X 1, MIN OVEN EQUIPMENT REPAIRER X 1, cueing for gait, walker, turn and balance safety. Pt up in her bedside chair followed by going over act Ex to bilateral LE of marching, LAQ's, and ankle pumps. Pt with her brace on left foot/ankle, breakfast in at this time. YARA DOWNING NURSERYMAN ASSISTANT.
[2017-06-20 12:00] VITALS: BP 126/56
--- NOTE | 2017-06-20 13:20 | NUR ---
DR. CARLSON CALLED AND NOTIFIED THAT ORTHOS WERE NEG. DR. CARLSON STATED HE WOULD PUT IN THE ORDER FOR DISCHARGE BUT STATED TO WAIT FOR SS TO CONFIRM HOME HEALTH.
[2017-06-20] MEDS ORDERED: MECLIZINE HCL25 M2 PO (14:47)
--- NOTE | 2017-06-20 15:30 | NUR ---
Patient is being discharged to home with a new order for home health with PT. Received order, [facility] for [facility].
--- NOTE | 2017-06-20 15:30 | NUR ---
PATIENT IS BEING DC TO HOME WITH HOME HEALTH. IV ACCESS REMOVED. PATIENT BELONGINGS READY FOR DISCHARGE. NO CONCERNS AT THIS TIME.
--- NOTE | 2017-06-20 16:21 | NUR ---
Discharge instructions reviewed with patient/family. Patient receptive and verbalizes understanding. Follow-up care arranged. Written instructions given to patient/family. KENTON ALFARO
--- NOTE | 2017-06-21 08:11 | NUR ---
PHYSICAL THERAPY CO-SIGN I approve of the Phyical Therapy notes written above. BJ MOLINA PT
== END 2017-06-20 16:21 | disposition home or self-care (01) | DRG 640 ==
LOC: ED 15:19 → EDHOLD 19:35 → 5E 19:35
PROVIDERS: Hospitalist; Internal Medicine; Nurse Practitioner Family; ADMIT Internal Medicine
DX: E86.0 Dehydration (principal); E43 Unspecified severe protein-calorie malnutrition; E11.65 Type 2 diabetes mellitus with hyperglycemia; E11.51 Type 2 diabetes mellitus with diabetic peripheral angiopathy without gangrene; I65.21 Occlusion and stenosis of right carotid artery; R44.3 Hallucinations, unspecified; N39.0 Urinary tract infection, site not specified; E87.8 Other disorders of electrolyte and fluid balance, not elsewhere classified; I35.1 Nonrheumatic aortic (valve) insufficiency; D53.9 Nutritional anemia, unspecified; M79.671 Pain in right foot; M79.672 Pain in left foot; R31.29 Other microscopic hematuria; E66.3 Overweight; M11.20 Other chondrocalcinosis, unspecified site; I25.10 Atherosclerotic heart disease of native coronary artery without angina pectoris; E78.5 Hyperlipidemia, unspecified; E03.9 Hypothyroidism, unspecified; I10 Essential (primary) hypertension; F34.1 Dysthymic disorder; F42.9 Obsessive-compulsive disorder, unspecified; K21.9 Gastro-esophageal reflux disease without esophagitis; N32.81 Overactive bladder; Z88.0 Allergy status to penicillin; Z88.2 Allergy status to sulfonamides; Z88.8 Allergy status to other drugs, medicaments and biological substances; Z79.899 Other long term (current) drug therapy; Z90.710 Acquired absence of both cervix and uterus; Z98.61 Coronary angioplasty status; Z90.89 Acquired absence of other organs; Z82.49 Family history of ischemic heart disease and other diseases of the circulatory system; Z83.3 Family history of diabetes mellitus; Z84.89 Family history of other specified conditions; Z68.28 Body mass index [BMI] 28.0-28.9, adult

== ENCOUNTER 2017-07-12 15:46 | Emergency (ER) | payer MEDICARE ==
[~2017-07-12] VITALS: Ht 167.6 cm; Wt 63.5 kg
--- NOTE | ~2017-07-12 | EKG ---
[place], [place] ELECTROCARDIOGRAM REPORT NAME: PEPITO LEWIS UNIT #: [id number] ROOM: DOCTOR: CAMILO NAVARRETE MD BIRTHDATE: [birth year] DOS: 07/12/2017 TIME: 16:48:15 RATE AND RHYTHM: Normal sinus rhythm at 80 beats per minute. DC interval 144 milliseconds. QRS duration 83 milliseconds. Corrected QT interval is 424 milliseconds, QRS axis 16. IMPRESSION: Normal EKG. CAMILO NAVARRETE MD CM:EKGRPT:ELECTROCARDIOGRAM REPORT [id number] 1225 CAMILO NAVARRETE MD
[~2017-07-12 15:46] MED LIST changes: +MECLIZINE HCL25 M2 PO
[2017-07-12 16:38] LABS: BASO % 0.3 % (0.0-1.0); EOS # 0.1 10*3/uL (0.0-0.4); EOS % 0.9 % (1.0-4.0); HEMATOCRIT 39.9 % (37.0-47.0); HEMOGLOBIN 13.3 g/dl (12.0-16.0); LYMPH # 1.4 10*3/uL (1.3-4.4); LYMPH % 12.4 % (27.0-41.0); MEAN CELL VOLUME 98.3 fl (81.0-99.0); MEAN CORPUSCULAR HGB 32.8 pg (27.0-31.0); MEAN CORPUSCULAR HGB CONC 33.3 g/dl (33.0-37.0); MEAN PLATELET VOLUME 9.8 fl (9.6-12.3); MONO # 0.7 10*3/uL (0.1-1.0); MONO % 6.3 % (3.0-9.0); NEUT # 8.8 10*3/uL (2.3-7.9); NEUT % 79.5 % (47.0-73.0); PLATELET COUNT AUTOMATED 184 10*3/uL (130-400); RED BLOOD COUNT 4.06 10*6/uL (4.10-5.10); WHITE BLOOD COUNT 11.1 10*3/uL (4.8-10.8)
[2017-07-12 16:56] LABS: ALBUMIN 2.8 gm/dl (3.1-4.5); ALKALINE PHOSPHATASE 82 U/L (45-117); BUN 23 mg/dl (7-24); CHLORIDE 100 mmol/L (98-107); CREATININE 0.82 mg/dL (0.55-1.02); POTASSIUM 3.9 mmol/L (3.5-5.1); SGOT/AST 20 IU/L (3-35); SGPT/ALT 25 U/L (12-78); SODIUM 134 mmol/L (136-145); TOTAL PROTEIN 7.3 gm/dL (6.4-8.2)
== END 2017-07-12 17:45 | disposition home or self-care (01) ==
LOC: ED 15:46
PROVIDERS: Emergency Medicine
DX: R55 Syncope and collapse (principal); I10 Essential (primary) hypertension; E11.9 Type 2 diabetes mellitus without complications; E03.9 Hypothyroidism, unspecified; E78.5 Hyperlipidemia, unspecified; K21.9 Gastro-esophageal reflux disease without esophagitis; Z95.5 Presence of coronary angioplasty implant and graft; Z88.0 Allergy status to penicillin; Z88.1 Allergy status to other antibiotic agents; Z88.2 Allergy status to sulfonamides

== ENCOUNTER 2018-02-19 13:38 | Emergency (ER) | payer MEDICARE ==
[~2018-02-19] VITALS: Ht 154.9 cm; Wt 62.1 kg
== END 2018-02-19 14:10 | disposition home or self-care (01) ==
LOC: ED 13:38
DX: S30.860A Insect bite (nonvenomous) of lower back and pelvis, initial encounter (principal); I10 Essential (primary) hypertension; K21.9 Gastro-esophageal reflux disease without esophagitis; E78.5 Hyperlipidemia, unspecified; E03.9 Hypothyroidism, unspecified; E11.9 Type 2 diabetes mellitus without complications; I25.10 Atherosclerotic heart disease of native coronary artery without angina pectoris; Z88.1 Allergy status to other antibiotic agents; Z88.2 Allergy status to sulfonamides; Z88.0 Allergy status to penicillin; Z79.899 Other long term (current) drug therapy; W57.XXXA Bitten or stung by nonvenomous insect and other nonvenomous arthropods, initial encounter; Y93.89 Activity, other specified; Y92.89 Other specified places as the place of occurrence of the external cause; Y99.8 Other external cause status

== ENCOUNTER → 2018-04-22 | Outpatient (CLI) | payer MEDICARE | END | disposition home or self-care (01) | LOC: LAB 13:05 | DX: N18.3 Chronic kidney disease, stage 3 (moderate) (principal) ==

== ENCOUNTER → 2018-06-19 | Outpatient (CLI) | payer MEDICARE ==
[2018-06-19 11:33] LABS: BASO % 0.7 % (0.0-1.0); EOS # 0.1 10*3/uL (0.0-0.4); EOS % 1.2 % (1.0-4.0); LYMPH # 1.7 10*3/uL (1.3-4.4); LYMPH % 28.3 % (27.0-41.0); MEAN CELL VOLUME 100.3 fl (81.0-99.0); MEAN CORPUSCULAR HGB 32.6 pg (27.0-31.0); MEAN CORPUSCULAR HGB CONC 32.5 g/dl (33.0-37.0); MEAN PLATELET VOLUME 11.1 fl (9.6-12.3); MONO # 0.5 10*3/uL (0.1-1.0); MONO % 7.9 % (3.0-9.0); NEUT # 3.7 10*3/uL (2.3-7.9); NEUT % 61.7 % (47.0-73.0); PLATELET COUNT AUTOMATED 202 10*3/uL (130-400); RED BLOOD COUNT 3.99 10*6/uL (4.10-5.10); RED CELL DISTRI WIDTH 12.7 % (0-14.5); WHITE BLOOD COUNT 5.9 10*3/uL (4.8-10.8)
[2018-06-19 11:45] LABS: BILIRUBIN NEGATIVE (NEGATIVE); BLOOD NEGATIVE (NEGATIVE); CLARITY SL CLOUDY (CLEAR); COLOR YELLOW (YELLOW); GLUCOSE NEGATIVE (NEGATIVE); KETONE TRACE (NEGATIVE); NITRITE NEGATIVE (NEGATIVE); SPECIFIC GRAVITY 1.025 (1.005-1.030); UROBILINOGEN 0.2 E.U./dl (0.2-1.0)
[2018-06-19 11:53] LABS: ALBUMIN 3.4 gm/dl (3.1-4.5); BUN 26 mg/dl (7-24); CHLORIDE 108 mmol/L (98-107); CHOLESTEROL 166 mg/dL (<200); CREATININE 0.79 mg/dL (0.55-1.02); PHOSPHOROUS 3.9 mg/dL (2.5-4.9); POTASSIUM 4.8 mmol/L (3.5-5.1); SGOT/AST 31 IU/L (3-35); SGPT/ALT 30 U/L (12-78); SODIUM 140 mmol/L (136-145); TOTAL PROTEIN 7.6 gm/dL (6.4-8.2); TRIGLYCERIDES 76 mg/dl (<150); URIC ACID 5.2 mg/dL (2.6-6.0); VLDL CHOLESTEROL 15 mg/dL (6-40)
[2018-06-19 11:54] LABS: ALKALINE PHOSPHATASE 87 U/L (45-117); HDL CHOLESTEROL 62 mg/dl (40-60); LDL CHOLESTEROL 89 mg/dL (9-159)
[2018-06-19 12:09] LABS: LEUKO ESTERASE NEGATIVE (NEGATIVE)
[2018-06-19 12:10] LABS: BACTERIA TRACE; EPITHELIAL CELLS 0-2; MUCOUS TRACE
[2018-06-19 12:13] LABS: PTH INTACT 173.5 pg/mL (18.5-88.0); VITAMIN D, 25-HYDROXY 24.7 ng/mL (30-100)
[2018-06-20 13:02] LABS: CREATININE,URINE 250.6 mg/dL (Not Estab.); MICRO ALBUMIN/CRE RATIO 5.5 (0.0-30.0)
== END | disposition home or self-care (01) ==
LOC: LAB 10:49
PROVIDERS: Internal Medicine Nephrology
DX: I12.9 Hypertensive chronic kidney disease with stage 1 through stage 4 chronic kidney disease, or unspecified chronic kidney disease (principal); N18.2 Chronic kidney disease, stage 2 (mild); I25.10 Atherosclerotic heart disease of native coronary artery without angina pectoris; E03.9 Hypothyroidism, unspecified; E83.52 Hypercalcemia; M11.80 Other specified crystal arthropathies, unspecified site; R42 Dizziness and giddiness; R53.82 Chronic fatigue, unspecified; R79.89 Other specified abnormal findings of blood chemistry; E78.5 Hyperlipidemia, unspecified

== ENCOUNTER 2018-10-03 16:53 | Inpatient (IN) | payer MEDICARE ==
[~2018-10-03] VITALS: Ht 152.4 cm; Wt 61.9 kg
--- NOTE | ~2018-10-03 | EKG ---
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
--- NOTE | ~2018-10-03 | EKG ---
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
--- NOTE | ~2018-10-03 | EKG ---
[place], [place] ELECTROCARDIOGRAM REPORT NAME: PEPITO LEWIS UNIT #: [id number] ROOM: 411 DOCTOR: RAKEL DRAFT REPORT BIRTHDATE: [birth year] [facility] Test Date: 2018-10-03 Test Time: 22:58:54 Pat Name: PEPITO LEWIS Department: Room: 411 Gender: F Records Officer: KENTRELL : 1935 Requested By: RUFUS CRALSON Order Number: [id number] Reading MD: Stephen Souza MD Measurements Intervals [place] Rate: 68 P: 59 MO: 156 QRS: 17 QRSD: 87 T: 29 QT: 403 QTc: 429 Interpretive Statements Sinus rhythm No previous ECG available for comparison Electronically Signed On 10-04-2018 6:37:56 PST by Stephen Souza MD CM:EKGRPT:ELECTROCARDIOGRAM REPORT [id number] 0637 RUFUS NEWTON DRAFT REPORT RUFUS CARLSON DO
[2018-10-03 16:58] VITALS: BP 166/72
[2018-10-03 17:19] LABS: BASO # 0.1 10*3/uL (0.0-0.1); BASO % 0.9 % (0.0-1.0); EOS # 0.1 10*3/uL (0.0-0.4); EOS % 2.4 % (1.0-4.0); HEMATOCRIT 36.8 % (37.0-47.0); HEMOGLOBIN 12.3 g/dl (12.0-16.0); LYMPH # 1.7 10*3/uL (1.3-4.4); LYMPH % 31.6 % (27.0-41.0); MEAN CELL VOLUME 98.4 fl (81.0-99.0); MEAN CORPUSCULAR HGB 32.9 pg (27.0-31.0); MEAN CORPUSCULAR HGB CONC 33.4 g/dl (33.0-37.0); MEAN PLATELET VOLUME 10.7 fl (9.6-12.3); MONO # 0.5 10*3/uL (0.1-1.0); MONO % 9.5 % (3.0-9.0); NEUT % 55.2 % (47.0-73.0); PLATELET COUNT AUTOMATED 203 10*3/uL (130-400); RED BLOOD COUNT 3.74 10*6/uL (4.10-5.10); RED CELL DISTRI WIDTH 12.4 % (0-14.5); WHITE BLOOD COUNT 5.5 10*3/uL (4.8-10.8)
[2018-10-03 17:39] LABS: ALBUMIN 3.1 gm/dl (3.1-4.5); ALKALINE PHOSPHATASE 84 U/L (45-117); BUN 26 mg/dl (7-24); CHLORIDE 106 mmol/L (98-107); CREATININE 0.68 mg/dL (0.55-1.02); SGOT/AST 19 IU/L (3-35); SGPT/ALT 21 U/L (12-78); SODIUM 140 mmol/L (136-145); TOTAL PROTEIN 7.3 gm/dL (6.4-8.2)
[2018-10-03 17:40] LABS: ACT PARTIAL THROMBO TIME 25.8 SECONDS (20.8-31.5); INTERNATIONAL NORM RATIO 0.9 (2.0-3.5)
[2018-10-03 17:48] LABS: TROPONIN I < 0.015 ng/ml (<0.045)
[2018-10-03 18:14] VITALS: BP 139/80
[2018-10-03 19:47] VITALS: BP 150/80; BP 182/98
--- NOTE | 2018-10-03 19:47 | NUR ---
Time: 1944 A 83 year old FEMALE admitted to under services of DR. LANDON DANIELLE,[facility]. Pt. arrived via bed from ER. Chief complaint: CHEST PAIN. HEALTHY LIFESTYLES GUIDELINE REVIEWED. THE PT DENIES ANY CHEST PAIN AT THIS TIME. SHE IS NORMAL SINUS RYTHM ON THE MONITOR WITH A HR IN THE 80'S, 99% ON ROOM AIR. CLARE DIETRICH
[2018-10-03 20:56] VITALS: BP 152/84
[2018-10-03] MEDS ORDERED: CARVEDILOL3.125 MG PO (21:26)
[2018-10-03] MEDS ORDERED: PRAVASTATIN SOD20 MG PO (21:29)
--- NOTE | 2018-10-03 21:37 | NUR ---
DR. HOOPER NOTIFIED MED REC IS UP TO DATE
--- NOTE | 2018-10-03 21:39 | NUR ---
DR. HOOPER NOTIFIED OF PT HIGH BP. NO NEW ORDERS GIVEN AT THIS TIME. WILL CONTINUE TO MONITOR.
[2018-10-04] VITALS: BP 172/86
[2018-10-04 07:11] LABS: BASO % 0.8 % (0.0-1.0); EOS # 0.1 10*3/uL (0.0-0.4); EOS % 2.3 % (1.0-4.0); HEMATOCRIT 37.6 % (37.0-47.0); HEMOGLOBIN 12.3 g/dl (12.0-16.0); LYMPH # 1.7 10*3/uL (1.3-4.4); LYMPH % 35.4 % (27.0-41.0); MEAN CELL VOLUME 97.7 fl (81.0-99.0); MEAN CORPUSCULAR HGB 31.9 pg (27.0-31.0); MEAN CORPUSCULAR HGB CONC 32.7 g/dl (33.0-37.0); MEAN PLATELET VOLUME 10.8 fl (9.6-12.3); MONO # 0.4 10*3/uL (0.1-1.0); MONO % 8.8 % (3.0-9.0); NEUT # 2.6 10*3/uL (2.3-7.9); NEUT % 52.5 % (47.0-73.0); PLATELET COUNT AUTOMATED 197 10*3/uL (130-400); RED BLOOD COUNT 3.85 10*6/uL (4.10-5.10); RED CELL DISTRI WIDTH 12.3 % (0-14.5); WHITE BLOOD COUNT 4.9 10*3/uL (4.8-10.8)
[2018-10-04 07:42] LABS: CHLORIDE 109 mmol/L (98-107); POTASSIUM 4.1 mmol/L (3.5-5.1); SODIUM 144 mmol/L (136-145)
[2018-10-04 07:52] LABS: ALKALINE PHOSPHATASE 82 U/L (45-117); BUN 18 mg/dl (7-24); CHOLESTEROL 172 mg/dL (<200); CREATININE 0.59 mg/dL (0.55-1.02); FREE T4 1.19 ng/dl (0.76-1.46); HDL CHOLESTEROL 70 mg/dl (40-60); LDL CHOLESTEROL 90 mg/dL (9-159); PHOSPHOROUS 3.5 mg/dL (2.5-4.9); SGOT/AST 21 IU/L (3-35); SGPT/ALT 21 U/L (12-78); TOTAL PROTEIN 7.2 gm/dL (6.4-8.2); TRIGLYCERIDES 60 mg/dl (<150); VLDL CHOLESTEROL 12 mg/dL (6-40)
[2018-10-04 07:55] VITALS: BP 122/84
--- NOTE | 2018-10-04 08:31 | NUR ---
ASSESSMENT DONE AND DOCUMENTED. DENIES PAIN. PT SITTING IN BED, WAITING FOR BREAKFAST. RISHABH BANERJEE SPNRCC
[2018-10-04 08:39] LABS: VITAMIN D, 25-HYDROXY 38.4 ng/mL (30-100)
--- NOTE | 2018-10-04 09:00 | NUR ---
Expressive Art Therapist in to talk to patient. Patient states lives at home alone with friends checking in on her. There are 0 steps in the home. Physician: Dr. Stephen Souza Pharmacy: [facility] Home health services: would like an [facility] RN on discharge Patient's level of ADLs: INDEPENDENT Patient has working utilities: yes DME: none Follow-up physician's appointment after d/c: she prefers to make her own follow up appt after discharge Does patient want to access PORTAL?: no Discharge plan discussed with patient. She lives at home alone with friends checking in on her. She is independent in her ADLs and ambulation. She does drive. Discussed home health care services and she would like a nurse on discharge. When provided with a list of agencies she chose [facility]. When medically stable she will be discharged to home with [facility] services. JERO GAVIRIA
--- NOTE | 2018-10-04 11:50 | NUR ---
PATIENT REFUSED ECHO. STATED SHE RECENTLY HADECHO AT [facility].
[2018-10-04 12:00] VITALS: BP 120/86
--- NOTE | 2018-10-04 13:45 | NUR ---
PT WALKED IN BECK ACCOMMPANIED BY MYSELF FOR 20-25 MINUTES. CURRENTLY SITTING IN ROOM WAITING FOR LUNCH. REPORT GIVEN TO RODOLFO CARSON. RISHABH BANERJEE SPNRCC
[2018-10-04 14:02] LABS: BILIRUBIN NEGATIVE (NEGATIVE); BLOOD NEGATIVE (NEGATIVE); CLARITY CLEAR (CLEAR); COLOR YELLOW (YELLOW); GLUCOSE NEGATIVE (NEGATIVE); KETONE NEGATIVE (NEGATIVE); LEUKO ESTERASE NEGATIVE (NEGATIVE); NITRITE NEGATIVE (NEGATIVE); PH 6.5 (5.0-9.0); UROBILINOGEN 0.2 E.U./dl (0.2-1.0)
[2018-10-04 14:09] LABS: RBC 0-2 rbc/hpf (0-2)
[2018-10-04 14:10] LABS: BACTERIA 1+; EPITHELIAL CELLS 0-2; MUCOUS TRACE
[2018-10-04 16:00] VITALS: BP 150/74
--- NOTE | 2018-10-04 16:00 | NUR ---
OV CALLED AND STATE THE PT HAS A 150 DOLLAR COPAY FOR HOME HEALTH. PT INFORMED AND STATES IT IS OK.
--- NOTE | 2018-10-04 18:25 | NUR ---
PHYSICAL THERAPY APtient evaluated on 4, full evaluation to follow. Continue with PT as per plan of care with fall and right AFO precautions. Home for d/c planning. PAtient is low complexity via chart review, tests and evaluation: [id number]. Thank you for this referral. Guerita Arnold,PT
[2018-10-04 20:00] VITALS: BP 125/58
[2018-10-05] VITALS: BP 131/60
--- NOTE | 2018-10-05 01:31 | NUR ---
24 HR chart check completed.
[2018-10-05 08:00] VITALS: BP 138/76
--- NOTE | 2018-10-05 08:40 | NUR ---
PHYSICAL THERAPY Patient presented to therapy with report of no pain or other complaints. Patient presented in standing position coming out of bathroom. Patient performed ambulation with no assistive device and CGA X 1 to Close Supervision for 800' x 1 around entire 4th floor 3 times. Patient had no LOB, SOB, or other difficulty during ambuilation. Patient was left in room sitting on EOB. Patient is Ind. in room throughout the day. Patient was 1:1 with this FINGERPRINT TECHNICIAN for 14 minutes total. Patient is recommended for discharge to home. ATTILA VILLATORO PTA
--- NOTE | 2018-10-05 13:15 | NUR ---
Discharge instructions reviewed with patient/family. Patient receptive and verbalizes understanding. Follow-up care arranged. Written instructions given to patient/family. IV site and property assessment monitor removed. [facility]. SHERRY ADRIAN
== END 2018-10-05 13:15 | disposition home health service (06) | DRG 392 ==
LOC: ED 16:53 → EDHOLD 17:59 → 4E 17:59
PROVIDERS: Emergency Medicine; Internal Medicine; ADMIT Internal Medicine
DX: K21.9 Gastro-esophageal reflux disease without esophagitis (principal); E83.41 Hypermagnesemia; R79.82 Elevated C-reactive protein (CRP); M11.20 Other chondrocalcinosis, unspecified site; E78.5 Hyperlipidemia, unspecified; E03.9 Hypothyroidism, unspecified; I73.9 Peripheral vascular disease, unspecified; I25.119 Atherosclerotic heart disease of native coronary artery with unspecified angina pectoris; I35.1 Nonrheumatic aortic (valve) insufficiency; D53.9 Nutritional anemia, unspecified; I65.29 Occlusion and stenosis of unspecified carotid artery; R73.03 Prediabetes; E66.3 Overweight; Z90.710 Acquired absence of both cervix and uterus; Z83.3 Family history of diabetes mellitus; Z82.49 Family history of ischemic heart disease and other diseases of the circulatory system; Z95.5 Presence of coronary angioplasty implant and graft; Z88.0 Allergy status to penicillin; Z88.2 Allergy status to sulfonamides; Z68.24 Body mass index [BMI] 24.0-24.9, adult

== ENCOUNTER 2019-03-09 15:30 | Inpatient (IN) | payer MEDICARE ==
[~2019-03-09] VITALS: Ht 154.9 cm; Wt 54.7 kg
--- NOTE | ~2019-03-09 | EKG ---
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
--- NOTE | ~2019-03-09 | EKG ---
[place], [place] ELECTROCARDIOGRAM REPORT NAME: PEPITO LEWIS UNIT #: [id number] ROOM: 510 DOCTOR: RAKEL DRAFT REPORT BIRTHDATE: [birth year] [facility] Test Date: 2019-03-09 Test Time: 18:45:13 Pat Name: PEPITO LEWIS Department: Room: 510 Gender: F Director Of Instruction: Haja Berry : 1935 Requested By: LEON ESTRADA Order Number: [id number] Reading MD: Susan Newman Measurements Intervals [place] Rate: 73 P: 55 NC: 152 QRS: 18 QRSD: 88 T: 28 QT: 389 QTc: 429 Interpretive Statements Sinus rhythm Probable left atrial enlargement Borderline ST elevation, lateral leads Artifact in lead(s) II,III,aVR,aVL,aVF,V1,V2,V3 and baseline wander in lead(s) V6 Compared to ECG 10/03/2018 22:58:54 ST (T wave) deviation now present Electronically Signed On 03-11-2019 12:49:40 PDT by Susan Newman CM:EKGRPT:ELECTROCARDIOGRAM REPORT [id number] 1249 LEON ELLINGTON DRAFT REPORT LEON ESTRADA MD
--- NOTE | ~2019-03-09 | CON ---
[place], [place] REPORT OF CONSULTATION [id number] UNIT #: [id number] ROOM: 510 DOCTOR: CLAYTON VAZQUEZ ED.D (APRIL) BIRTHDATE: [birth year] DOS: 03/12/2019 HISTORY OF PRESENT ILLNESS: The patient is an 83-year-old female referred for evaluation by Dr. Souza. At the present time, she is on the 5th floor at [facility]. She is a and has no children. She presently resides alone. [facility] and also has two friends who check on her daily. 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 PAST MEDICAL HISTORY: Her medical history is pertinent for syncope, coronary artery disease, peripheral artery disease, hyperlipidemia, hypothyroidism, hypertension, depression, and GERD. MEDICATIONS: Include omeprazole, pravastatin, carvedilol, vitamin D3, diclofenac, Synthroid, Zetia and Plavix. This patient was awake, alert and oriented in all three spheres. She knew what date it was today and she knew she was in [facility]. She had no difficulty answering questions whatsoever. I have known this patient for many years and her mental status has not changed. She does have periods of delirium when she becomes very ill, but does resolve and she has been living at home with extensive home care. She is quite competent to make informed healthcare decisions and does have extensive support. She states she has been having some dizzy spells recently and hopefully this will resolve and she can return home. I did meet with case management and they will continue to follow up and make certain that [facility] is available when the patient is discharged. DIAGNOSES: Dysthymia and personality disorder, not otherwise specified. RECOMMENDATIONS: In my opinion, this patient may be discharged home when she is medically stable. Thank you very much for this consult. CLAYTON VAZQUEZ ED.D CM:CONSTR:REPORT OF CONSULTATION 1045 03/12/19 2345 interface
--- NOTE | ~2019-03-09 | EKG ---
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
[~2019-03-09 15:30] MED LIST changes: +CARVEDILOL3.125 MG PO; +D3-20002000 UNIT PO; +DICLOFENAC SOD100 GM T; +PRAVASTATIN SOD20 MG PO; +SLIPPERY ELM BARK PO
[2019-03-09 15:31] VITALS: BP 146/74
[2019-03-09 16:02] LABS: BASO # 0.1 10*3/uL (0.0-0.1); BASO % 0.7 % (0.0-1.0); EOS # 0.1 10*3/uL (0.0-0.4); EOS % 1.2 % (1.0-4.0); HEMATOCRIT 35.9 % (37.0-47.0); HEMOGLOBIN 12.1 g/dl (12.0-16.0); LYMPH # 1.3 10*3/uL (1.3-4.4); LYMPH % 19.4 % (27.0-41.0); MEAN CELL VOLUME 100.8 fl (81.0-99.0); MEAN CORPUSCULAR HGB CONC 33.7 g/dl (33.0-37.0); MEAN PLATELET VOLUME 11.7 fl (9.6-12.3); MONO # 0.6 10*3/uL (0.1-1.0); NEUT # 4.7 10*3/uL (2.3-7.9); NEUT % 69.4 % (47.0-73.0); PLATELET COUNT AUTOMATED 214 10*3/uL (130-400); RED BLOOD COUNT 3.56 10*6/uL (4.10-5.10); RED CELL DISTRI WIDTH 14.5 % (0-14.5); WHITE BLOOD COUNT 6.8 10*3/uL (4.8-10.8)
[2019-03-09 16:12] VITALS: BP 146/68
[2019-03-09 16:15] LABS: ACT PARTIAL THROMBO TIME 21.8 SECONDS (20.0-32.1); INTERNATIONAL NORM RATIO 0.9 (2.0-3.5)
[2019-03-09 16:16] LABS: ALBUMIN 3.3 gm/dl (3.1-4.5); ALKALINE PHOSPHATASE 72 U/L (45-117); BUN 23 mg/dl (7-24); CHLORIDE 106 mmol/L (98-107); CREATININE 0.87 mg/dL (0.55-1.02); POTASSIUM 4.4 mmol/L (3.5-5.1); SGOT/AST 36 IU/L (3-35); SGPT/ALT 29 U/L (12-78); SODIUM 140 mmol/L (136-145); TOTAL PROTEIN 7.5 gm/dL (6.4-8.2)
[2019-03-09 16:18] LABS: TROPONIN I < 0.015 ng/ml (<0.045)
[2019-03-09 16:46] VITALS: BP 156/75
--- NOTE | 2019-03-09 17:14 | NUR ---
AMBULATED TO BATHROOM, TOLERATED WELL. COMPLAINS OVER AND OVER OF BEING DIZZY HOWEVER GAIT STEADY, NO WOBBLING NOTED. BENDS OVER TO CLEAN LID OF TIILET STEADILY.
[2019-03-09 17:22] LABS: BILIRUBIN NEGATIVE (NEGATIVE); BLOOD NEGATIVE (NEGATIVE); CLARITY CLEAR (CLEAR); COLOR YELLOW (YELLOW); GLUCOSE NEGATIVE (NEGATIVE); KETONE NEGATIVE (NEGATIVE); LEUKO ESTERASE NEGATIVE (NEGATIVE); NITRITE NEGATIVE (NEGATIVE); UROBILINOGEN 0.2 E.U./dl (0.2-1.0)
[2019-03-09 17:24] VITALS: BP 165/83
[2019-03-09 17:30] LABS: BACTERIA TRACE; RBC 0-2 rbc/hpf (0-2)
[2019-03-09 17:31] LABS: MUCOUS TRACE
--- NOTE | 2019-03-09 18:25 | NUR ---
A 83, admitted to 5E, under the services of CAMILO Rodriguez MD with a diagnosis of NEAR SYNCOPE, GENERLALIZED WEAKNESS. Chief complaint is DIZZINESS, LIGHTHEADEDNESS. Patient arrived via stretcher from ER. Monitor applied. Initial assessment completed. Vital signs taken and recorded. CAMILO RODRIGUEZ MD notified of admission to the unit. Orders received. See assessment for past medical history, medications and allergies. Patient and/or family oriented to unit. [address] visitation policy reviewed. Clothing/patient valuable form completed. AMADOU HENRIQUEZ
[2019-03-09 18:30] VITALS: BP 177/78
[2019-03-09] MEDS ORDERED: RIVASTIGMINE TAR3 M1 PO (18:47)
[2019-03-09] MEDS ORDERED: MOBIC15 MG PO (18:48)
[2019-03-09 20:00] VITALS: BP 160/64
[2019-03-10] VITALS: BP 149/95
[2019-03-10 06:23] LABS: BASO % 0.7 % (0.0-1.0); EOS # 0.1 10*3/uL (0.0-0.4); EOS % 1.8 % (1.0-4.0); HEMATOCRIT 31.5 % (37.0-47.0); HEMOGLOBIN 10.1 g/dl (12.0-16.0); LYMPH % 36.7 % (27.0-41.0); MEAN CORPUSCULAR HGB 32.4 pg (27.0-31.0); MEAN CORPUSCULAR HGB CONC 32.1 g/dl (33.0-37.0); MEAN PLATELET VOLUME 11.6 fl (9.6-12.3); MONO # 0.6 10*3/uL (0.1-1.0); MONO % 10.2 % (3.0-9.0); NEUT # 2.8 10*3/uL (2.3-7.9); NEUT % 50.4 % (47.0-73.0); PLATELET COUNT AUTOMATED 150 10*3/uL (130-400); RED BLOOD COUNT 3.12 10*6/uL (4.10-5.10); RED CELL DISTRI WIDTH 14.5 % (0-14.5); WHITE BLOOD COUNT 5.5 10*3/uL (4.8-10.8)
[2019-03-10 06:29] LABS: BUN 15 mg/dl (7-24); CHLORIDE 113 mmol/L (98-107); CREATININE 0.53 mg/dL (0.55-1.02); PHOSPHOROUS 2.9 mg/dL (2.5-4.9); POTASSIUM 3.7 mmol/L (3.5-5.1); SODIUM 143 mmol/L (136-145)
[2019-03-10 08:30] VITALS: BP 174/86
[2019-03-10 12:00] VITALS: BP 145/71
--- NOTE | 2019-03-10 13:10 | NUR ---
Per request of Dr. Souza called patients home pharmacy to verify who started patient on Exelon. Per pharmacist Dr. Orellana on 02-02-19.
[2019-03-10 13:47] LABS: IRON 101 ug/dL (50-170); TOTAL IRON BINDING CAPACITY 281 ug/dl (250-450)
[2019-03-10 16:00] VITALS: BP 167/69
[2019-03-10 20:00] VITALS: BP 125/62
--- NOTE | 2019-03-10 20:50 | NUR ---
PATIENT RESTING IN BED WITH NO NEEDS AT THIS TIME. BED IN LOWEST POSITION, CALL LIGHT IN REACH
[2019-03-11] VITALS: BP 137/58
--- NOTE | 2019-03-11 07:00 | NUR ---
PHYSICAL THERAPY PT EVAL COMPLETED TODAY ON LEVEL5: FULL EVALUATION TO FOLLOW. RECOMMEND PT WHILE HERE TO ADDRESS DECREASED BALANCE AND ENDURANCE AND STRNENGTH AND THUS FUNCTIONAL MOBILITY . PT EVAL IS MODERATE COMPLEXITY BASED ON CHART REVIEW, TEST RESULTS AND EVALUATION : [id number]. D/C REC: ARE TO RETURN TO HOME WITH HOME HEALTH SERVICES AND FAMILY SUPPORT. THANK YOU FOR REFERRAL OSBALDO GONZALEZ PT
[2019-03-11 08:00] VITALS: BP 173/86
--- NOTE | 2019-03-11 11:16 | NUR ---
Dr. Larson returned call for consult. No new orders physician to follow up at patients bedside.
[2019-03-11 12:00] VITALS: BP 144/94
[2019-03-11 16:00] VITALS: BP 141/74
--- NOTE | 2019-03-11 19:15 | NUR ---
Arrived on shift, bedside report recived from off going nurse Resendez, introduced to patient, white board updated, patient denies any concerns or complaints at this time.
[2019-03-11 20:00] VITALS: BP 122/66
--- NOTE | 2019-03-11 20:14 | NUR ---
24 HR chart check completed.
[2019-03-12] VITALS: BP 128/65
--- NOTE | 2019-03-12 09:00 | NUR ---
Auto Parker in to talk to patient. Patient states lives at home alone with friends checking in on her. There are 0 steps in the home. Physician: Dr. Stephen Souaz Pharmacy: [facility] health services: [facility] previously but not currently. She does have [facility] 7 days a week for 3 hours in the morning and 3 hours in the evening. Patient's level of ADLs: minimal assistance Patient has working utilities: yes DME: cane Follow-up physician's appointment after d/c: she prefers to make her own follow up appt after discharge Does patient want to access PORTAL?: no Discharge plan discussed with patient. She lives at home alone with friends checking in on her. She does have [facility] 7 days a week for 3 hours in the morning and 3 hours in the evening. She needs minimal assistance with her ADLs and ambulates with a cane. She does drive. When medically stable she will be discharged to home with the resumption of her [facility] services. JERO GAVIRIA
--- NOTE | 2019-03-12 09:20 | NUR ---
Patient leaving for ultrasound testing by w/betito Jalloh OTR/L
--- NOTE | 2019-03-12 10:45 | NUR ---
PHYSICAL THERAPY Patient seen this am 1:1 for therapy visit and was supine in bed upon therapist arrival. Patient c/o of feeling bouts of light headedness during standing activities and instructed on visual fixation technique. Patient transfers supine to sit EOB with Min A, tolerating static sit tolerance x several minutes without c/o. Patient then completed several sit to stand transfers, CGA, demonstrating slow, steady rise and mild c/o light headedness. Patient ambulated CATTLE SPRAYER/CGA, 50'x 1, demonstrating decreased stride and several bouts of unsteady gait pattern during all turns. Patient also stated she felt a little dizzy turning secondary to therapist observing patient rapid cervical rotation. Patient instructed to turn more slowly to improve safety and reported slight decrease in dizziness. Patient returned to supine in bed and remained with call light, tray table, telephone and bed alarm for safety. Will continue per POC as tolerated, total treatment time 15 minutes. Garrett Garces, SIZE STAMPER
[2019-03-12 12:00] VITALS: BP 147/69
--- NOTE | 2019-03-12 15:45 | NUR ---
Occupational Therapy evaluation completed on 5 with full eval to follow. Precautions include fall risk; bed alarm,dizziness with head/eye movt changes,IV UE,anxious, impaired memory, moderate complexity level 15315 via chart review, testing and evaluation. Recommend return home if goals met and home health SN,OT,PT,INSURANCE MARKETING REP. Thank you for this referral. Miryam Jalloh OTR/l
[2019-03-12 16:00] VITALS: BP 150/73
--- NOTE | 2019-03-12 19:05 | NUR ---
ARRIVED ON SHIFT, INTRODUCED TO PATIENT BEDSIDE REPORT RECIEVED, PATIENT HAD VISITOR IN ROOM, WHITE BOARD UPDATED.
[2019-03-12 20:00] VITALS: BP 100/58
--- NOTE | 2019-03-12 22:36 | NUR ---
24 HR chart check completed.
[2019-03-13] VITALS: BP 134/75
--- NOTE | 2019-03-13 00:11 | NUR ---
PATIENT C/O DIZZINESS AND NAUSEA, OFFERED AND ACCEPTED ANTIVERT, EXPLAINED TO PATIENT IT IS AN NEEDED MEDICATION AND SHE WOULD NEED TO REQUEST IT WHEN SHE FELT SHE NEEDED IT VERSED UNDERSTANDING.
--- NOTE | 2019-03-13 01:15 | NUR ---
CHERELLE TO PATIENTS ROOM, PATIENT WAS REVIEWING A LIST OF THINGS SHE WANTED TO BE RETRIEVED FOR HER, "PAPAYA, MARIPOSA, AVACADO, SLIPPERY BARK," ADVISED PATIENT WE DO NOT TYPICALLY DO THAT, SHE THEN STATED, "THIS IS WHAT KEEPS ME WELL." SHE REQUESTS THAT HER aNTIVERT BE GIVEN ROUTINELY, i ADVISED PATIENT i WILL PASS THIS ON TO THE NEXT SHIFT. SHE REPORTS SHE IS STILL HAVING NAUSEA, BUT DIZZINESS IS IMPROVED. SHE WAS OFFERED ZOFRAN FOR NAUSEA. SHE ACCEPTED.
--- NOTE | 2019-03-13 01:20 | NUR ---
ATTEMPTED TO GIVE TESSA IV, IV LEFT ARM WOULD NOT FLUSH, PLACED 22 GUAGE IV IN RIGHT ARM PATIENT TOLERATED WELL. ZOFRAN GIVEN.
--- NOTE | 2019-03-13 02:15 | NUR ---
PATIENT IS NOW C/O BURNING INN HER STOMACH SPOKE WITH DR. PAEZ, SHE ORDERED PEPCID, ORDER WAS ACKKNOWLEDGED, [facility] NOTIFIED, WILL GIVE WHEN READY.
--- NOTE | 2019-03-13 03:06 | NUR ---
PATIENT GIVEN PEPCID ORDERED X 1 FOR C/O BURNING STOMACH.
[2019-03-13 06:45] LABS: BASO % 0.6 % (0.0-1.0); EOS # 0.1 10*3/uL (0.0-0.4); EOS % 1.3 % (1.0-4.0); HEMATOCRIT 37.6 % (37.0-47.0); HEMOGLOBIN 12.3 g/dl (12.0-16.0); LYMPH # 1.8 10*3/uL (1.3-4.4); MEAN CELL VOLUME 100.3 fl (81.0-99.0); MEAN CORPUSCULAR HGB 32.8 pg (27.0-31.0); MEAN CORPUSCULAR HGB CONC 32.7 g/dl (33.0-37.0); MEAN PLATELET VOLUME 11.5 fl (9.6-12.3); MONO # 0.5 10*3/uL (0.1-1.0); MONO % 8.3 % (3.0-9.0); NEUT # 3.1 10*3/uL (2.3-7.9); NEUT % 56.6 % (47.0-73.0); PLATELET COUNT AUTOMATED 183 10*3/uL (130-400); RED BLOOD COUNT 3.75 10*6/uL (4.10-5.10); RED CELL DISTRI WIDTH 14.6 % (0-14.5); WHITE BLOOD COUNT 5.5 10*3/uL (4.8-10.8)
[2019-03-13 07:24] LABS: CHLORIDE 108 mmol/L (98-107); SODIUM 141 mmol/L (136-145)
[2019-03-13 07:31] LABS: BUN 18 mg/dl (7-24); CREATININE 0.67 mg/dL (0.55-1.02)
[2019-03-13 07:51] VITALS: BP 118/82
--- NOTE | 2019-03-13 09:00 | NUR ---
Nuclear Test Technician in to see patient. No new needs or request at this time. When medically stable she will be discharged to home with the resumption of her [facility] services.
--- NOTE | 2019-03-13 10:00 | NUR ---
PHYSICAL THERAPY Patient seen this am 1:1 for therapy visit and was finishing breakfast in bed upon therapist arrival. Patient voices no c/o's pain and bouts of light headedness this morning so far. Patient transfers supine to sit EOB with CGA, and sit to stand CGA x 1. Patient ambulated DIRECTOR SYSTEMS/CGA 20'x 2 to bathroom, completing safe toilet transfer between gait trials. Patient demonstrates slow, steady sulaiman and no LOB this session, with increased confidence. Patient returned to bedside chair and was able to perform seated B LE therex, all planes x 20 reps each. Patient remained in bedside chair with call light, tray table, cell phone and body alarm for safety. Will continue per POC as tolerated, total treatment time 24 minutes. Garrett Mora, FOREST EXAMINER
--- NOTE | 2019-03-13 10:47 | NUR ---
PATIENT RESTING IN HER BED AT THIS TIME. NO S/S OF DISTRESS. NOTED THAT PATIENT IS NOT COMPLETELY ORIENTED. MILD CONFUSION NOTED THIS MORNING. CALL LIGHT WITHIN REACH. BED ALARM ARMED.
--- NOTE | 2019-03-13 11:16 | NUR ---
Pt was seen for 30 minutes in OT beginning with donning socks, AFO & shoes with set up only. Pt performed fxl mobility throughout bedroom, hallway & bathroom with close supervision due to hx of falls. Transfer to chair & toilet required close supervision. Toileting performed independently. Alarm in place. Call light within reach. Continue with POC. Kerrie VILLARREAL
[2019-03-13 12:19] VITALS: BP 118/76
--- NOTE | 2019-03-13 12:40 | NUR ---
PHYSICAL THERAPY Patient seen this pm 1:1 for therapy visit and was sitting up in bedside chair upon therapist arrival. Patient voices no new c/o's at this time and was instructed on HEP consisting of seated B LE therex. Patient reviewed handout of each ex and performed each one seated, all planes x 20 reps each without c/o. Patient needed v/c to complete full AROM during LAQ and was very happy to receive the HEP handout. Patient remained in chair with call light, tray table, cell phone and body alarm for safety. Will continue per POC as tolerated, total treatment time 15 minutes. Garrett Mora, QUARTER BACKER
[2019-03-13 16:00] VITALS: BP 121/59
[2019-03-13 20:00] VITALS: BP 133/70
--- NOTE | 2019-03-13 21:49 | NUR ---
MEDICATED WITH PRN TYLENOL FOR PAIN. WILL MONITOR
[2019-03-14] VITALS: BP 152/75
--- NOTE | 2019-03-14 03:27 | NUR ---
PATIENT RESTING WITH EYES CLOSED. NO S/S OF DISTRESS. RESPS EASY AND REGULAR. BED IN LOWEST POSITION, CALL LIGHT IN REACH, BED ALARM ON
[2019-03-14 07:35] VITALS: BP 128/82
--- NOTE | 2019-03-14 08:20 | NUR ---
Pt was seen in OT x 40 minutes beginning with fxl mobility to shower area with close supervision due to hx of falls. Transfered into shower with SBA for safety. During shower, pt able to complete all aspects of showering with set up only and close supervision when standing. Pt able to don gown and socks with set up. Call light within reach. Continue with POC. Kerrie CALDWELL/Jesus
--- NOTE | 2019-03-14 10:30 | NUR ---
PHYSICAL THERAPY Patient seen this am 1:1 for therapy visit and was supine in bed following breakfast upon therapist arrival. Patient voices no c/o's pain, however stated she was still having some dizziness epsisodes. Patient transfers supine to sit EOB with SBA and sit to stand CGA, utilizing visual fixation technique upon slow rise. Patient reports mild dizziness which goes away within 5 seconds, then ambulates CYBER ENGINEER/CGA, 100'x 1, demonstrating very cautious gait pattern. Patient is still unsteady during all 90/180 turns, requiring v/c to improve focus on task. Patient returned to bedside chair and remained with call light, tray table, telephone and body alarm for safety. Will continue per POC as tolerated, total treatment time 17 minutes. Garrett Mora, BUNDLE TIER AND LABELER
[2019-03-14 11:53] VITALS: BP 124/82
--- NOTE | 2019-03-14 15:32 | NUR ---
CCDIS Discharge instructions reviewed with patient/family. Patient receptive and verbalizes understanding. Follow-up care arranged. Written instructions given to patient/family. JUNE KENNEDY
--- NOTE | 2019-03-14 15:47 | NUR ---
PHYSICAL THERAPY CO-SIGN I approve of the Phyical Therapy notes written above. BJ MOLINA PT
--- NOTE | 2019-03-15 14:02 | NUR ---
OCCUPATIONAL THERAPY CO-SIGN I approve of the Occupational Therapy notes written above. HELEN ZUÑIGA OTR/Jesus
== END 2019-03-14 15:32 | disposition home or self-care (01) | DRG 149 ==
LOC: ED 15:30 → EDHOLD 17:42 → 5E 17:42
PROVIDERS: Emergency Medicine; Internal Medicine Nephrology; Student in an Organized Health Care Education/Training Program; ADMIT Internal Medicine
DX: H83.03 Labyrinthitis, bilateral (principal); R55 Syncope and collapse; R53.1 Weakness; M11.20 Other chondrocalcinosis, unspecified site; H81.10 Benign paroxysmal vertigo, unspecified ear; I25.10 Atherosclerotic heart disease of native coronary artery without angina pectoris; E78.5 Hyperlipidemia, unspecified; D64.9 Anemia, unspecified; E03.9 Hypothyroidism, unspecified; I10 Essential (primary) hypertension; I35.1 Nonrheumatic aortic (valve) insufficiency; K21.9 Gastro-esophageal reflux disease without esophagitis; I65.29 Occlusion and stenosis of unspecified carotid artery; F32.9 Major depressive disorder, single episode, unspecified; F60.9 Personality disorder, unspecified; F34.1 Dysthymic disorder; I73.9 Peripheral vascular disease, unspecified; R73.03 Prediabetes; Z88.0 Allergy status to penicillin; Z88.2 Allergy status to sulfonamides; Z88.1 Allergy status to other antibiotic agents; Z87.440 Personal history of urinary (tract) infections; Z90.710 Acquired absence of both cervix and uterus; Z95.5 Presence of coronary angioplasty implant and graft; Z82.49 Family history of ischemic heart disease and other diseases of the circulatory system; Z83.3 Family history of diabetes mellitus; Z84.89 Family history of other specified conditions; Z79.899 Other long term (current) drug therapy; Z79.02 Long term (current) use of antithrombotics/antiplatelets; Z79.890 Hormone replacement therapy

== ENCOUNTER 2019-03-17 21:35 | Inpatient (IN) | payer MEDICARE ==
[~2019-03-17] VITALS: Ht 152.4 cm; Wt 57.7 kg
--- NOTE | ~2019-03-17 | CON ---
[place], [place] REPORT OF CONSULTATION NAME: PEPITO LEWIS UNIT #: [id number] ROOM: 411 DOCTOR: JENNY PETERSON CNP BIRTHDATE: [birth year] DOS: 03/18/2019 PSYCHIATRIC CONSULTATION CHIEF COMPLAINT: "What do you want from me." HISTORY OF PRESENT ILLNESS: This is an 83-year-old female who presented to the Emergency Department yesterday via [facility] with complaints of increased anxiety and dizziness. The patient had reported that she has a new home health aide and she does not trust her, states she had increased anxiety. We were consulted to evaluate the patient. The patient reports to me that she is overall happy. She denies feeling anxious. There is nothing to worry about, whatever is going to be is going to be. The patient reports that she sleeps well and that her appetite is good. The patient does report that she does not have children and she is . She reports that she lives alone; however, she does not feel afraid. MENTAL STATUS: The patient is alert and oriented to person, place and time. There is no overt shay or hypomania noted. The patient was pleasant and cooperative with me. No delusions or paranoia noted. No auditory or visual hallucinations noted. The patient's mood is anxious. Her affect is congruent with mood. The patient's insight and judgment are fair. The patient's speech is rapid and rambling. It is difficult to keep the patient focused on subject; however, she is able to be redirected. DIAGNOSIS: Anxiety, unspecified. PLAN: After meeting the patient, I will increase the patient's Exelon from 3 mg twice a day to 4.5 mg twice a day. I will start Vistaril 25 mg 3 times a day as needed for anxiety and will also start Remeron 15 mg at bedtime for anxiety. I will discontinue the p.r.n. trazodone as this will be considered polypharmacy. Should you require any further intervention, please feel free to reconsult us at any time. Jenny Peterson CNP CM:CONSTR:REPORT OF CONSULTATION 1237 03/18/19 1541 interface
--- NOTE | ~2019-03-17 | EKG ---
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
--- NOTE | ~2019-03-17 | PR ---
[place], [place] PROGRESS NOTE NAME: PEPITO LEWIS [facility] #: [id number] UNIT #: [id number] ROOM: 411 DOCTOR: BRIDGET, PHD BHARATI BIRTHDATE: [birth year] DOS: 03/19/2019 I followed up with the patient today regarding her anxiety. Per the patient's request, she is considering moving either closer to her close friend or her brother due to her health concerns. She is also considering pursuing jail placement as deemed appropriate. She is concerned about her dizziness and nausea and but not living very close to the hospital. Discussed her concerns and considered the pros and cons of each choice, utilized CBT motivational interviewing and supportive therapy interventions. The patient appeared to benefit. DIAGNOSIS: Unspecified anxiety. PLAN: The patient requested I follow up with her while she is in the hospital. I will continue to follow and address her concerns. Karma Rogers, PhD CM:LYLA 1518 0019 PHD BHARATI ROGERS 03/20/19 0017 interface
[~2019-03-17 21:35] MED LIST changes: +MOBIC15 MG PO; +RIVASTIGMINE TAR3 M1 PO
[2019-03-17 21:39] VITALS: BP 143/96
[2019-03-17 22:28] LABS: BASO % 0.5 % (0.0-1.0); EOS # 0.1 10*3/uL (0.0-0.4); EOS % 1.1 % (1.0-4.0); HEMATOCRIT 34.5 % (37.0-47.0); HEMOGLOBIN 11.1 g/dl (12.0-16.0); LYMPH # 1.5 10*3/uL (1.3-4.4); LYMPH % 18.1 % (27.0-41.0); MEAN CELL VOLUME 101.8 fl (81.0-99.0); MEAN CORPUSCULAR HGB 32.7 pg (27.0-31.0); MEAN CORPUSCULAR HGB CONC 32.2 g/dl (33.0-37.0); MEAN PLATELET VOLUME 11.9 fl (9.6-12.3); MONO # 0.6 10*3/uL (0.1-1.0); MONO % 7.6 % (3.0-9.0); NEUT # 6.1 10*3/uL (2.3-7.9); NEUT % 72.5 % (47.0-73.0); PLATELET COUNT AUTOMATED 178 10*3/uL (130-400); RED BLOOD COUNT 3.39 10*6/uL (4.10-5.10); RED CELL DISTRI WIDTH 14.7 % (0-14.5); WHITE BLOOD COUNT 8.3 10*3/uL (4.8-10.8)
[2019-03-17 22:46] LABS: ALBUMIN 3.1 gm/dl (3.1-4.5); ALKALINE PHOSPHATASE 62 U/L (45-117); BUN 25 mg/dl (7-24); CHLORIDE 108 mmol/L (98-107); CREATININE 0.56 mg/dL (0.55-1.02); LIPASE 186 U/L (73-393); POTASSIUM 3.8 mmol/L (3.5-5.1); SGOT/AST 20 IU/L (3-35); SGPT/ALT 25 U/L (12-78); SODIUM 141 mmol/L (136-145); TOTAL PROTEIN 6.7 gm/dL (6.4-8.2)
[2019-03-17 22:52] LABS: TROPONIN I < 0.015 ng/ml (<0.045)
[2019-03-17 22:56] LABS: ACT PARTIAL THROMBO TIME 22.2 SECONDS (20.0-32.1); INTERNATIONAL NORM RATIO 0.9 (2.0-3.5)
[2019-03-17 23:06] LABS: BILIRUBIN NEGATIVE (NEGATIVE); BLOOD TRACE-LYSED (NEGATIVE); CLARITY CLEAR (CLEAR); COLOR YELLOW (YELLOW); GLUCOSE NEGATIVE (NEGATIVE); KETONE NEGATIVE (NEGATIVE); LEUKO ESTERASE NEGATIVE (NEGATIVE); NITRITE NEGATIVE (NEGATIVE); SPECIFIC GRAVITY 1.015 (1.005-1.030); UROBILINOGEN 0.2 E.U./dl (0.2-1.0)
[2019-03-17 23:18] LABS: WBC 0-2 wbc/hpf (0-5)
[2019-03-18 00:29] VITALS: BP 134/90
[2019-03-18 00:45] VITALS: BP 162/86
--- NOTE | 2019-03-18 00:45 | NUR ---
A 83, admitted to , under the services of CAMILO Rodriguez MD with a diagnosis of VERTIGO, CHANGE IN MENTAL STATUS. Chief complaint is DIZZINESS. Patient arrived via ambulance from ER. Monitor applied. Initial assessment completed. Vital signs taken and recorded. CAMILO RODRIGUEZ MD notified of admission to the unit. Orders received. See assessment for past medical history, medications and allergies. Patient and/or family oriented to unit. [facility] visitation policy reviewed. Clothing/patient valuable form completed. MARIAH BAKER
[2019-03-18] MEDS ORDERED: TRAZODONE50 MG PO (02:20)
--- NOTE | 2019-03-18 05:38 | NUR ---
DR. NAVARRETE NOTIFIED OF PT'S ADMISSION, LABS AND CXR RESULTS REVIEWED. T.O. VD FOR DR. DUARTE CONSULT, REGULAR DIET, AND CONTINUE ALL HOME MEDS.
[2019-03-18 06:00] VITALS: BP 160/80
--- NOTE | 2019-03-18 06:21 | NUR ---
U NOTIFIED OF NEW CONSULT.
[2019-03-18 12:00] VITALS: BP 153/59
--- NOTE | 2019-03-18 12:33 | NUR ---
JENNY ESPINOSA IN TO SEE PATIENT REGARDING BHU CONSULT.
[2019-03-18 16:00] VITALS: BP 142/79
--- NOTE | 2019-03-18 19:00 | NUR ---
PT AWAKE IN BED TALKING ON PHONE DURING BEDSIDE SHIFT REPORT. NO C/O VOICED. CALL LIGHT IN REACH.
[2019-03-18 20:00] VITALS: BP 156/73
--- NOTE | 2019-03-18 21:24 | NUR ---
DR. NAVARRETE NOTIFIED OF PT'S C/O NAUSEA. T.O. RCVD FOR ZOFRAN 4MG X1 NOW AND IF EFFECTIVE THEN EVERY 8 HOURS PRN FOR N/V.
--- NOTE | 2019-03-18 22:00 | NUR ---
PT MEDICATED W/ZOFRAN FOR C/O NAUSEA. PT ASSISTED TO BSC THEN BACK TO BED. CALL LIGHT IN REACH.
[2019-03-19] VITALS: BP 152/62
--- NOTE | 2019-03-19 04:43 | NUR ---
24 HR chart check completed.
[2019-03-19 08:00] VITALS: BP 136/67; BP 136/68
--- NOTE | 2019-03-19 09:00 | NUR ---
Wound Care Rn in to talk to patient. Patient states lives at home with alone. There are few steps in the home. Physician: [facility] Patient's level of ADLs: INDEPENDENT Patient has working utilities: all working DME: Follow-up physician's appointment after d/c: will be made by hospitalist nurse director upon discharge Does patient want to access PORTAL?: no Discharge plan discussed with patient, patient lives at home alone, she states she gets around fine, she has [facility] home [facility] 7 days a week 3 hours in am and 3 hours in pm, patient states she will be going home when able, no other needs at this time. RENATA LINDSAY
[2019-03-19 12:00] VITALS: BP 137/79; BP 148/67
--- NOTE | 2019-03-19 14:25 | NUR ---
PATIENT REQUESTING MEDICATION FOR NAUSEA. DR PELAYO CALLED- NEW ORDER RECEIVED-SEE EMAR.
--- NOTE | 2019-03-19 14:49 | NUR ---
ZOFRAN ADMINISTERED FOR NAUSEA PRESCRIBED. WILL MONITOR FOR EFFECTIVENESS.
[2019-03-19 16:00] VITALS: BP 198/83
[2019-03-19 20:00] VITALS: BP 97/47
--- NOTE | 2019-03-19 21:33 | NUR ---
PATIENT, ISABELLE CHASE (POA) NOTIFIED OF PATIENTS BED AVAILABILITY AT [facility] AND TRANSFER SOON AMBULANCE IS AVAILABLE.
--- NOTE | 2019-03-19 22:09 | NUR ---
RODOLFO NANCE AT [facility] WAS INFORMED OF PATIENTS ARRIVAL AFTER 8AM TOMORROW MORNING. PATIENT ALSO NOTIFIED WELL [employer]ET[employer] SPECIALIST, EMILY.
[2019-03-20] VITALS: BP 168/74
[2019-03-20 08:00] VITALS: BP 146/82
--- NOTE | 2019-03-20 08:55 | NUR ---
PT TRANSPORTED TO [facility] AT THIS TIME VIA [facility]. [facility] INTACT. REPORT GIVEN TO RECIEVING UNIT BY PREVIOUS SHIFT. VSS.
== END 2019-03-20 08:55 | disposition short-term general hospital (02) | DRG 72 ==
LOC: ED 21:35 → EDHOLD 23:56 → 4E 23:56
PROVIDERS: Emergency Medicine Emergency Medical Services; ADMIT Internal Medicine
DX: G93.41 Metabolic encephalopathy (principal); H83.09 Labyrinthitis, unspecified ear; R42 Dizziness and giddiness; F41.9 Anxiety disorder, unspecified; I10 Essential (primary) hypertension; F03.90 Unspecified dementia, unspecified severity, without behavioral disturbance, psychotic disturbance, mood disturbance, and anxiety; K21.9 Gastro-esophageal reflux disease without esophagitis; E78.5 Hyperlipidemia, unspecified; E03.9 Hypothyroidism, unspecified; I25.10 Atherosclerotic heart disease of native coronary artery without angina pectoris; I73.9 Peripheral vascular disease, unspecified; Z88.0 Allergy status to penicillin; Z88.2 Allergy status to sulfonamides; Z88.1 Allergy status to other antibiotic agents; Z88.8 Allergy status to other drugs, medicaments and biological substances; Z95.5 Presence of coronary angioplasty implant and graft; Z90.710 Acquired absence of both cervix and uterus; Z82.49 Family history of ischemic heart disease and other diseases of the circulatory system; Z83.3 Family history of diabetes mellitus

== ENCOUNTER 2019-05-24 12:21 | Emergency (ER) | payer MEDICARE ==
[~2019-05-24] VITALS: Ht 157.4 cm; Wt 51.7 kg
--- NOTE | ~2019-05-24 | EKG ---
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
[~2019-05-24 12:21] MED LIST changes: +TRAZODONE50 MG PO
[2019-05-24 12:48] LABS: BASO % 0.5 % (0.0-1.0); EOS # 0.2 10*3/uL (0.0-0.4); EOS % 3.1 % (1.0-4.0); HEMATOCRIT 36.2 % (37.0-47.0); HEMOGLOBIN 11.7 g/dl (12.0-16.0); LYMPH # 1.4 10*3/uL (1.3-4.4); LYMPH % 24.5 % (27.0-41.0); MEAN CELL VOLUME 99.5 fl (81.0-99.0); MEAN CORPUSCULAR HGB 32.1 pg (27.0-31.0); MEAN CORPUSCULAR HGB CONC 32.3 g/dl (33.0-37.0); MONO # 0.5 10*3/uL (0.1-1.0); MONO % 9.3 % (3.0-9.0); NEUT # 3.4 10*3/uL (2.3-7.9); NEUT % 62.4 % (47.0-73.0); PLATELET COUNT AUTOMATED 198 10*3/uL (130-400); RED BLOOD COUNT 3.64 10*6/uL (4.10-5.10); WHITE BLOOD COUNT 5.5 10*3/uL (4.8-10.8)
[2019-05-24 13:03] LABS: ALKALINE PHOSPHATASE 73 U/L (45-117); BUN 17 mg/dl (7-24); CHLORIDE 106 mmol/L (98-107); CREATININE 0.68 mg/dL (0.55-1.02); SGOT/AST 23 IU/L (3-35); SGPT/ALT 19 U/L (12-78); SODIUM 139 mmol/L (136-145); TOTAL PROTEIN 7.2 gm/dL (6.4-8.2)
[2019-05-24 13:05] LABS: TROPONIN I < 0.015 ng/ml (<0.045)
== END 2019-05-24 15:25 | disposition home or self-care (01) ==
LOC: ED 12:21
PROVIDERS: Nurse Practitioner Family
DX: E86.0 Dehydration (principal); R42 Dizziness and giddiness; R51 Headache; E03.9 Hypothyroidism, unspecified; E78.00 Pure hypercholesterolemia, unspecified; I10 Essential (primary) hypertension; K21.9 Gastro-esophageal reflux disease without esophagitis; Z79.899 Other long term (current) drug therapy; Z88.0 Allergy status to penicillin; Z88.2 Allergy status to sulfonamides; Z88.1 Allergy status to other antibiotic agents

== ENCOUNTER → 2019-06-04 | Outpatient (CLI) | payer MEDICARE ==
[2019-06-04 15:25] LABS: BASO # 0.1 10*3/uL (0.0-0.1); BASO % 0.7 % (0.0-1.0); EOS # 0.2 10*3/uL (0.0-0.4); EOS % 2.5 % (1.0-4.0); HEMATOCRIT 39.7 % (37.0-47.0); HEMOGLOBIN 12.8 g/dl (12.0-16.0); LYMPH # 1.6 10*3/uL (1.3-4.4); MEAN CELL VOLUME 98.5 fl (81.0-99.0); MEAN CORPUSCULAR HGB 31.8 pg (27.0-31.0); MEAN CORPUSCULAR HGB CONC 32.2 g/dl (33.0-37.0); MEAN PLATELET VOLUME 11.6 fl (9.6-12.3); MONO # 0.5 10*3/uL (0.1-1.0); MONO % 6.6 % (3.0-9.0); NEUT # 4.9 10*3/uL (2.3-7.9); NEUT % 67.9 % (47.0-73.0); PLATELET COUNT AUTOMATED 249 10*3/uL (130-400); RED BLOOD COUNT 4.03 10*6/uL (4.10-5.10); RED CELL DISTRI WIDTH 13.2 % (0-14.5); WHITE BLOOD COUNT 7.2 10*3/uL (4.8-10.8)
[2019-06-04 15:52] LABS: ALBUMIN 3.3 gm/dl (3.1-4.5); ALKALINE PHOSPHATASE 84 U/L (45-117); BUN 27 mg/dl (7-24); CHLORIDE 105 mmol/L (98-107); POTASSIUM 4.3 mmol/L (3.5-5.1); SGOT/AST 18 IU/L (3-35); SGPT/ALT 19 U/L (12-78); SODIUM 140 mmol/L (136-145); TOTAL PROTEIN 8.1 gm/dL (6.4-8.2)
== END | disposition home or self-care (01) ==
LOC: LAB 14:13
PROVIDERS: Internal Medicine
DX: R42 Dizziness and giddiness (principal)

== ENCOUNTER 2019-10-10 00:05 | Inpatient (IN) | payer MEDICARE ==
[~2019-10-10] VITALS: Ht 152.4 cm; Wt 53.1 kg
[2019-10-10] VITALS (10 sets, daily range): BP systolic 105–191; BP diastolic 49–92
[~2019-10-10 00:05] MED LIST changes: -MOBIC15 MG PO; +MOBIC7.5 MG PO
[2019-10-10 00:39] LABS: BILIRUBIN NEGATIVE (NEGATIVE); BLOOD NEGATIVE (NEGATIVE); CLARITY CLEAR (CLEAR); COLOR YELLOW (YELLOW); GLUCOSE NEGATIVE (NEGATIVE); KETONE 1+ (NEGATIVE); LEUKO ESTERASE NEGATIVE (NEGATIVE); NITRITE NEGATIVE (NEGATIVE); UROBILINOGEN 0.2 E.U./dl (0.2-1.0)
[2019-10-10 00:45] LABS: BASO # 0.1 10*3/uL (0.0-0.1); BASO % 0.8 % (0.0-1.0); EOS # 0.1 10*3/uL (0.0-0.4); EOS % 1.5 % (1.0-4.0); HEMATOCRIT 38.8 % (37.0-47.0); HEMOGLOBIN 12.6 g/dl (12.0-16.0); LYMPH # 2.1 10*3/uL (1.3-4.4); LYMPH % 34.4 % (27.0-41.0); MEAN CELL VOLUME 97.2 fl (81.0-99.0); MEAN CORPUSCULAR HGB 31.6 pg (27.0-31.0); MEAN CORPUSCULAR HGB CONC 32.5 g/dl (33.0-37.0); MEAN PLATELET VOLUME 11.2 fl (9.6-12.3); MONO # 0.6 10*3/uL (0.1-1.0); MONO % 9.5 % (3.0-9.0); NEUT # 3.3 10*3/uL (2.3-7.9); NEUT % 53.5 % (47.0-73.0); PLATELET COUNT AUTOMATED 181 10*3/uL (130-400); RED BLOOD COUNT 3.99 10*6/uL (4.10-5.10); WHITE BLOOD COUNT 6.1 10*3/uL (4.8-10.8)
[2019-10-10 01:02] LABS: ALBUMIN 3.4 gm/dl (3.1-4.5); ALKALINE PHOSPHATASE 96 U/L (45-117); BUN 38 mg/dl (7-24); CHLORIDE 108 mmol/L (98-107); CREATININE 0.95 mg/dL (0.55-1.02); POTASSIUM 3.9 mmol/L (3.5-5.1); SGOT/AST 24 IU/L (3-35); SGPT/ALT 25 U/L (12-78); SODIUM 141 mmol/L (136-145); TOTAL PROTEIN 7.6 gm/dL (6.4-8.2)
[2019-10-10 01:03] LABS: TROPONIN I < 0.015 ng/ml (<0.045)
[2019-10-10 01:06] LABS: RBC 0-2 rbc/hpf (0-2); WBC 0-2 wbc/hpf (0-5)
--- NOTE | 2019-10-10 05:10 | NUR ---
PATIENT IN BED RESTING EYES AT THIS TIME. PATIENT ALERT. NO DISTRESS NOTED. CALL LIGHT WITHIN REACH. RN WILL CONT TO MONITOR
--- NOTE | 2019-10-10 06:30 | NUR ---
PATIENT AMBULATORY TO BEDSIDE COMMODE AT THIS TIME. ALERT AT THIS TIME. NO DISTRESS NOTED. VSS. RN WILL CONT TO MONITOR.
--- NOTE | 2019-10-10 07:10 | NUR ---
REPORT FROM CASSIDY REYNOLDS AT THIS TIME.
--- NOTE | 2019-10-10 08:10 | NUR ---
PATIENT BREAKFAST TRAY ORDERED.
--- NOTE | 2019-10-10 09:18 | NUR ---
PATIENT TAKEN TO 4TH FLOOR BY THIS NURSE.
--- NOTE | 2019-10-10 10:00 | NUR ---
A 84, admitted to 4E, under the services of CAMILO Rodriguez MD with a diagnosis of CHEST PAIN,SOB. Chief complaint is SHORTNESS OF BREATHE. Patient arrived via bed from ER. Monitor applied. Initial assessment completed. Vital signs taken and recorded. CAMILO RODRIGUEZ MD notified of admission to the unit. Orders received. See assessment for past medical history, medications and allergies. Patient and/or family oriented to unit. [address] visitation policy reviewed. Clothing/patient valuable form completed. CHASE KELLY
[2019-10-10] MEDS ORDERED: OMEPRAZOLE20 M2 PO (10:27)
--- NOTE | 2019-10-10 10:35 | NUR ---
DR. FLORES CALLED AWARE OF CONSULT. HE WILL SEE HER LATER.
--- NOTE | 2019-10-10 10:37 | NUR ---
CALLED DR. BRIGGS AWARE PT MEDICATIONS ARE UPDATED
--- NOTE | 2019-10-10 20:25 | NUR ---
PT AWAKE IN BED. PATIENT TALKS QUICKLY AND IDEAS ARE SCATTERED. PATIENT NEARLY RUNS OUT OF BREATH WHILE TALKING ABOUT THE DIFFERENCE BETWEEN HER WALKING STICK AND HER CANE. PT STATES SHE NEEDS TO GET UP TO THE BATHROOM. ALSO STATES SHE MUST BRUSH HER TEETH WHILE SHE IS IN THERE. STATES SHE NEVER GOES TO THE BATHROOM WITHOUT BRUSHING HER TEETH. TOOTHBRUSH & TOOTHPASTE PROVIDED. RN ASSISTED PT UP TO BATHROOM. CAN BE UNSTEADY AT TIMES. RN EDUCATED PT ABOUT USING CALL LIGHT PULL STRING BEFORE GETTING UP TO RETURN TO BED. PT VERBALIZES UNDERSTANDING. PA NOTIFIED OF PT IN RESTROOM. WILL MONITOR. CALL LIGHT PULL STRING IN REACH.
--- NOTE | 2019-10-10 21:35 | NUR ---
PT C/O EPIGASTRIC PAIN RADIATING UNDER RIGHT BREAST. PT STATES SHE TURNED HERSELF IN BED, AND NOW SHE IS HAVING "INDESCRIBABLE PAIN." EVEN WITH THIS PAIN, PATIENT INSISTING TO GET UP TO BATHROOM. PT ASSISTED UP TO BATHROOM AND BACK INTO BED. IV MORPHINE ADMINISTERED PER PRN ORDER FOR EPIGASTRIC PAIN, WHICH PT RATES "5 OR 7" OUT OF 10. MEANWHILE, PATIENT HAS NOT STOPPED TALKING ABOUT BABOONS TO TAKE A BREATH. RN ENCOURAGED PATIENT TO STOP TALKING AND TAKE DEEP BREATHS. PATIENT IS TAKING DEEP BREATHS, PT YELLS AT RN TO STOP TALKING SO LOUD. RN HAS LOWERED VOICE MULTIPLE TIMES. CURRENTLY SPEAKING IN ALMOST A WHISPER, BUT THAT IS STILL TOO LOUD FOR THE PT.
--- NOTE | 2019-10-10 21:57 | NUR ---
NOTIFIED OF PATIENT'S C/O EPIGASTRIC PAIN RADIATING UNDER RIGHT BREAST. DISCUSSED ADMITTING DX/SYMPTOMS THAT LEAD TO PT ADMISSION, MEDICATIONS GIVEN, AND STAT EKG ORDERED TO RULE OUT CARDIAC-RELATED ISSUES. ALSO DISCUSSED PERTINENT PMH. ALSO MADE AWARE THAT HOME MED REC UP TO DATE. PATIENT BEGAN YELLING AT THIS RN WHEN I TOLD HER THAT HOME MEDS HAVE NOT BEEN ORDERED. PT STATES "I BROUGHT MY MEDICINES WITH ME AND YOU AREN'T EVEN GIVING THEM TO ME?! NO WONDER I AM HAVING SO MUCH PAIN!" RN ASKED PT WHAT MEDS SHE NEEDS FOR TONIGHT. PATIENT STATES "ALL OF THE ONES I DIDN'T TAKE BEFORE I CAME." AFTER MUCH DISCUSSION WITH PT, RN ABLE TO FIGURE OUT WHICH MEDICATIONS PATIENT NEEDS. THESE NEEDS DISCUSSED WITH . NEW ORDERS TO FOLLOW.
--- NOTE | 2019-10-10 22:37 | NUR ---
PT ASLEEP IN BED. EASILY AROUSABLE. PT SWALLOWED EXELON PILL WITHOUT DIFFICULTY. PT ASSISTED TO REPOSITION IN BED. BED LOCKED IN LOW POSITION, BED ALARM INTACT, CALL LIGHT IN REACH. WILL MONITOR.
--- NOTE | 2019-10-11 00:41 | NUR ---
PT ASLEEP IN BED. RESPIRATIONS EASY. NO S/S OF DISTRESS NOTED. WILL MONITOR. CALL LIGHT IN REACH. BED ALARM INTACT.
[2019-10-11 05:53] LABS: BUN 34 mg/dl (7-24); CHLORIDE 108 mmol/L (98-107); CREATININE 0.81 mg/dL (0.55-1.02); POTASSIUM 4.1 mmol/L (3.5-5.1); SODIUM 139 mmol/L (136-145)
[2019-10-11 06:13] LABS: BASO % 0.4 % (0.0-1.0); EOS % 0.4 % (1.0-4.0); HEMATOCRIT 38.6 % (37.0-47.0); HEMOGLOBIN 12.3 g/dl (12.0-16.0); LYMPH # 1.2 10*3/uL (1.3-4.4); LYMPH % 17.8 % (27.0-41.0); MEAN CORPUSCULAR HGB 30.9 pg (27.0-31.0); MEAN CORPUSCULAR HGB CONC 31.9 g/dl (33.0-37.0); MEAN PLATELET VOLUME 11.4 fl (9.6-12.3); MONO # 0.4 10*3/uL (0.1-1.0); MONO % 6.1 % (3.0-9.0); NEUT # 5.1 10*3/uL (2.3-7.9); PLATELET COUNT AUTOMATED 186 10*3/uL (130-400); RED BLOOD COUNT 3.98 10*6/uL (4.10-5.10); RED CELL DISTRI WIDTH 13.1 % (0-14.5); WHITE BLOOD COUNT 6.8 10*3/uL (4.8-10.8)
--- NOTE | 2019-10-11 08:14 | NUR ---
PHYSICAL THERAPY Screen received pt admitted from home with dizziness and dysphagia please consult PT if functional status declines below baseline, thank you Rosa Phillips PT
--- NOTE | 2019-10-11 10:30 | NUR ---
Director Of Corporate Real Estate in to talk to patient. Patient states lives at home alone with friends checking in on her. There are 0 steps in the home. Physician: Dr. Stephen Souza Pharmacy: [facility] Home health services: [facility] previously but not currently. She does have [facility] 7 days a week for 4 hours in the morning and 4 hours in the evening. Patient's level of ADLs: minimal assistance Patient has working utilities: yes DME: cane Follow-up physician's appointment after d/c: she prefers to make her own follow up appt after discharge Does patient want to access PORTAL?: no Discharge plan discussed with patient. She lives at home alone with friends checking in on her. She does have [facility] 7 days a week for 4 hours in the morning and 4 hours in the evening. She has done OP PT in [place]. She needs minimal assistance with her ADLs and ambulates with a cane. She does drive. When medically stable she will be discharged to home with the resumption of her [facility] services. A friend will provide transportation on discharge. JERO GAVIRIA
[2019-10-11 12:00] VITALS: BP 152/79
--- NOTE | 2019-10-11 13:19 | NUR ---
Called to patient's room to discuss changing PCP. Given list of PCPs in the area.
--- NOTE | 2019-10-11 13:58 | NUR ---
PT LEFT AGAINST MEDICAL ADVICE. EDUCATION PROVIDED REGARDING RISKS R/T LEAVING AGAINST MEDICAL ADVICE.HEPLOCK REMOVED AND TELEMETRY ACCOUNTED FOR. HOME MEDS RETRIEVED FROM PHARMACY AND RETURN SLIP SIGNED UPON RECIEVING HOME MEDS. PT LEFT WITH HER FRIEND.DR BRIGGS AND DR PELAYO NOTIFIED. CAKE FORMER NOTIFIED AT THIS TIME.
== END 2019-10-11 13:58 | disposition left against medical advice (07) | DRG 392 ==
LOC: ED 00:05 → EDHOLD 05:12 → 4E 05:12
PROVIDERS: Emergency Medicine; Internal Medicine; ADMIT Internal Medicine
DX: R13.14 Dysphagia, pharyngoesophageal phase (principal); R09.89 Other specified symptoms and signs involving the circulatory and respiratory systems; R42 Dizziness and giddiness; I25.10 Atherosclerotic heart disease of native coronary artery without angina pectoris; M11.20 Other chondrocalcinosis, unspecified site; Z53.29 Procedure and treatment not carried out because of patient's decision for other reasons; E03.9 Hypothyroidism, unspecified; F41.9 Anxiety disorder, unspecified; E78.5 Hyperlipidemia, unspecified; I10 Essential (primary) hypertension; K21.9 Gastro-esophageal reflux disease without esophagitis; Z88.1 Allergy status to other antibiotic agents; Z88.0 Allergy status to penicillin; Z88.8 Allergy status to other drugs, medicaments and biological substances; Z95.5 Presence of coronary angioplasty implant and graft; Z90.710 Acquired absence of both cervix and uterus; Z83.3 Family history of diabetes mellitus; Z82.49 Family history of ischemic heart disease and other diseases of the circulatory system; Z79.899 Other long term (current) drug therapy

== ENCOUNTER 2019-11-23 15:44 | Emergency (ER) | payer MEDICARE ==
[~2019-11-23] VITALS: Ht 152.4 cm; Wt 54.4 kg
[~2019-11-23 15:44] MED LIST changes: +OMEPRAZOLE20 M2 PO
== END 2019-11-23 17:56 | disposition home or self-care (01) ==
LOC: ED 15:44
DX: S09.90XA Unspecified injury of head, initial encounter (principal); M25.551 Pain in right hip; I25.10 Atherosclerotic heart disease of native coronary artery without angina pectoris; Z88.0 Allergy status to penicillin; Z88.2 Allergy status to sulfonamides; Z88.1 Allergy status to other antibiotic agents; Z88.4 Allergy status to anesthetic agent; Z79.899 Other long term (current) drug therapy; W18.09XA Striking against other object with subsequent fall, initial encounter; Y93.89 Activity, other specified; Y92.89 Other specified places as the place of occurrence of the external cause; Y99.8 Other external cause status

== ENCOUNTER 2020-07-02 04:46 | Emergency (ER) | payer MEDICARE ==
[~2020-07-02] VITALS: Ht 152.4 cm; Wt 63.5 kg
[2020-07-02 06:31] LABS: BASO % 0.8 % (0.0-1.0); EOS # 0.1 10*3/uL (0.0-0.4); EOS % 1.3 % (1.0-4.0); HEMATOCRIT 39.5 % (37.0-47.0); LYMPH # 1.4 10*3/uL (1.3-4.4); LYMPH % 28.4 % (27.0-41.0); MEAN CELL VOLUME 95.2 fl (81.0-99.0); MEAN CORPUSCULAR HGB 30.8 pg (27.0-31.0); MEAN CORPUSCULAR HGB CONC 32.4 g/dl (33.0-37.0); MEAN PLATELET VOLUME 10.6 fl (9.6-12.3); MONO # 0.4 10*3/uL (0.1-1.0); MONO % 7.9 % (3.0-9.0); NEUT # 2.9 10*3/uL (2.3-7.9); NEUT % 61.4 % (47.0-73.0); PLATELET COUNT AUTOMATED 208 10*3/uL (130-400); RED BLOOD COUNT 4.15 10*6/uL (4.10-5.10); RED CELL DISTRI WIDTH 13.2 % (0-14.5); WHITE BLOOD COUNT 4.8 10*3/uL (4.8-10.8)
[2020-07-02 06:38] LABS: ALBUMIN 3.4 gm/dl (3.1-4.5); ALKALINE PHOSPHATASE 95 U/L (45-117); BUN 16 mg/dl (7-24); CHLORIDE 106 mmol/L (98-107); CREATININE 0.75 mg/dL (0.55-1.02); LIPASE 127 U/L (73-393); POTASSIUM 3.7 mmol/L (3.5-5.1); SGOT/AST 15 IU/L (3-35); SGPT/ALT 17 U/L (12-78); SODIUM 140 mmol/L (136-145); TOTAL PROTEIN 7.7 gm/dL (6.4-8.2)
== END 2020-07-02 09:00 | disposition short-term general hospital (02) ==
LOC: ED 04:46
PROVIDERS: Emergency Medicine
DX: R13.10 Dysphagia, unspecified (principal); Z88.0 Allergy status to penicillin; Z88.2 Allergy status to sulfonamides; Z88.1 Allergy status to other antibiotic agents; Z79.899 Other long term (current) drug therapy

== ENCOUNTER 2020-11-23 15:01 | Observation (INO) | payer MEDICARE ==
[~2020-11-23] VITALS: Ht 152.4 cm; Wt 60.9 kg
[2020-11-23 15:07] VITALS: BP 188/91
[2020-11-23 15:26] LABS: BASO % 0.6 % (0.0-1.0); EOS # 0.2 10*3/uL (0.0-0.4); HEMATOCRIT 40.3 % (37.0-47.0); LYMPH # 1.6 10*3/uL (1.3-4.4); LYMPH % 22.8 % (27.0-41.0); MEAN CORPUSCULAR HGB 31.1 pg (27.0-31.0); MEAN CORPUSCULAR HGB CONC 32.8 g/dl (33.0-37.0); MEAN PLATELET VOLUME 10.2 fl (9.6-12.3); MONO # 0.5 10*3/uL (0.1-1.0); MONO % 7.2 % (3.0-9.0); NEUT # 4.6 10*3/uL (2.3-7.9); NEUT % 66.3 % (47.0-73.0); PLATELET COUNT AUTOMATED 226 10*3/uL (130-400); RED BLOOD COUNT 4.24 10*6/uL (4.10-5.10); RED CELL DISTRI WIDTH 12.7 % (0-14.5); WHITE BLOOD COUNT 6.9 10*3/uL (4.8-10.8)
[2020-11-23 15:37] LABS: ACT PARTIAL THROMBO TIME 25.6 SECONDS (20.0-32.1); INTERNATIONAL NORM RATIO 0.9 (2.0-3.5)
[2020-11-23 15:43] LABS: ALBUMIN 3.2 gm/dl (3.1-4.5); ALKALINE PHOSPHATASE 88 U/L (45-117); BUN 29 mg/dl (7-24); CHLORIDE 109 mmol/L (98-107); CREATININE 0.78 mg/dL (0.55-1.02); SGOT/AST 19 IU/L (3-35); SGPT/ALT 24 U/L (12-78); SODIUM 139 mmol/L (136-145); TOTAL PROTEIN 7.4 gm/dL (6.4-8.2)
[2020-11-23 15:44] LABS: LIPASE 158 U/L (73-393)
[2020-11-23 15:46] LABS: TROPONIN I < 0.015 ng/ml (<0.045)
[2020-11-23 16:07] VITALS: BP 145/97
[2020-11-23 18:36] VITALS: BP 197/100
[2020-11-23 19:46] VITALS: BP 181/85
[2020-11-23] MEDS ORDERED: MECLIZINE HCL25 M2 PO (19:50)
[2020-11-23] MEDS ORDERED: VITAMIN D3125 MCG PO (19:54)
[2020-11-23 20:08] VITALS: BP 165/79
[2020-11-23] MEDS ORDERED: NORVASC10 MG PO (21:09)
[2020-11-23 22:38] VITALS: BP 169/87
[2020-11-24] VITALS (8 sets, daily range): BP systolic 117–178; BP diastolic 52–85
[2020-11-24] MEDS ORDERED: NORVASC2.5 MG PO (03:01)
[2020-11-24] MEDS ORDERED: LEVOTHYROXINE75 MC1 PO (03:32)
[2020-11-24] MEDS ORDERED: ASPIRIN CHEWABL81 MG PO (03:50)
[2020-11-24 06:36] LABS: BUN 22 mg/dl (7-24); CHLORIDE 108 mmol/L (98-107); CREATININE 0.63 mg/dL (0.55-1.02); POTASSIUM 3.8 mmol/L (3.5-5.1); SODIUM 140 mmol/L (136-145)
[2020-11-25 02:06] LABS: RBC, FOLATE HEMATOCRIT 39.3 % (34.0-46.6)
[2020-11-25 06:19] LABS: BASO % 0.6 % (0.0-1.0); EOS # 0.2 10*3/uL (0.0-0.4); EOS % 3.4 % (1.0-4.0); HEMATOCRIT 36.8 % (37.0-47.0); LYMPH # 2.2 10*3/uL (1.3-4.4); LYMPH % 34.1 % (27.0-41.0); MEAN CELL VOLUME 95.8 fl (81.0-99.0); MEAN CORPUSCULAR HGB 31.3 pg (27.0-31.0); MEAN CORPUSCULAR HGB CONC 32.6 g/dl (33.0-37.0); MEAN PLATELET VOLUME 10.7 fl (9.6-12.3); MONO # 0.6 10*3/uL (0.1-1.0); MONO % 8.8 % (3.0-9.0); NEUT # 3.5 10*3/uL (2.3-7.9); NEUT % 52.6 % (47.0-73.0); PLATELET COUNT AUTOMATED 209 10*3/uL (130-400); RED BLOOD COUNT 3.84 10*6/uL (4.10-5.10); RED CELL DISTRI WIDTH 13.5 % (0-14.5); WHITE BLOOD COUNT 6.6 10*3/uL (4.8-10.8)
[2020-11-25 11:49] VITALS: BP 132/70
[2020-11-25 12:00] VITALS: BP 122/55
[2020-11-25 16:00] VITALS: BP 111/57
[2020-11-25] MEDS ORDERED: RISPERDAL0.5 MG PO (18:46)
[2020-11-25] MEDS ORDERED: GAVISCON ES TA1 EACH PO (19:42)
[2020-12-05] MEDS ORDERED: ROZEREM8 MG PO (09:26)
[2020-12-05] MEDS ORDERED: RISPERIDONE1 MG PO (09:26)
[2020-12-05] MEDS ORDERED: VITAMIN D3125 MC1 PO (09:26)
[2020-12-05] MEDS ORDERED: RIVASTIGMINE1 EAC2 T (09:26)
[2020-12-05] MEDS ORDERED: MEMANTINE HCL10 MG PO (09:26)
[2020-12-05] MEDS ORDERED: TRANSDERM-SCOP1 EAC1 TD (13:01)
== END 2020-11-25 17:32 | disposition designated cancer center or children's hospital (05) ==
LOC: ED 15:01 → EDHOLD 17:57 → 4E 11-24 00:32
PROVIDERS: Counselor Professional; Emergency Medicine; ADMIT Internal Medicine; ATTEND Internal Medicine
DX: K44.9 Diaphragmatic hernia without obstruction or gangrene (principal); K29.70 Gastritis, unspecified, without bleeding; K29.80 Duodenitis without bleeding; G30.9 Alzheimer's disease, unspecified; F02.80 Dementia in other diseases classified elsewhere, unspecified severity, without behavioral disturbance, psychotic disturbance, mood disturbance, and anxiety; I10 Essential (primary) hypertension; I51.7 Cardiomegaly; Z79.82 Long term (current) use of aspirin; Z79.899 Other long term (current) drug therapy

== ENCOUNTER 2020-12-12 04:59 | Emergency (ER) | payer MEDICARE ==
[~2020-12-12] VITALS: Ht 157.4 cm; Wt 70.3 kg
[~2020-12-12 04:59] MED LIST changes: +ASPIRIN CHEWABL81 MG PO; +GAVISCON ES TA1 EACH PO; +LEVOTHYROXINE75 MC1 PO; +MEMANTINE HCL10 MG PO; +NORVASC10 MG PO; +NORVASC2.5 MG PO; +RISPERDAL0.5 MG PO; +RISPERIDONE1 MG PO; +RIVASTIGMINE1 EAC2 T; +ROZEREM8 MG PO; +TRANSDERM-SCOP1 EAC1 TD; +VITAMIN D3125 MC1 PO; +VITAMIN D3125 MCG PO
[2020-12-12 06:08] LABS: BASO # 0.1 10*3/uL (0.0-0.1); BASO % 1.2 % (0.0-1.0); EOS # 0.3 10*3/uL (0.0-0.4); EOS % 6.5 % (1.0-4.0); HEMATOCRIT 37.5 % (37.0-47.0); LYMPH # 1.3 10*3/uL (1.3-4.4); LYMPH % 25.7 % (27.0-41.0); MEAN CELL VOLUME 96.2 fl (81.0-99.0); MEAN CORPUSCULAR HGB 30.8 pg (27.0-31.0); MEAN PLATELET VOLUME 10.2 fl (9.6-12.3); MONO # 0.5 10*3/uL (0.1-1.0); MONO % 10.1 % (3.0-9.0); NEUT # 2.8 10*3/uL (2.3-7.9); NEUT % 56.3 % (47.0-73.0); PLATELET COUNT AUTOMATED 213 10*3/uL (130-400); WHITE BLOOD COUNT 4.9 10*3/uL (4.8-10.8)
[2020-12-12 06:19] LABS: INTERNATIONAL NORM RATIO 0.9 (2.0-3.5)
[2020-12-12 06:22] LABS: BILIRUBIN Negative (Negative); BLOOD Negative (Negative); CLARITY Clear (Clear); COLOR Yellow (Yellow); GLUCOSE Negative (Negative); KETONE Negative (Negative); LEUKO ESTERASE Negative (Negative); NITRITE Negative (Negative); SPECIFIC GRAVITY 1.015 (1.001-1.030); UROBILINOGEN 0.2 E.U./dl (0.0-1.0)
[2020-12-12 06:24] LABS: ALBUMIN 3.2 gm/dl (3.1-4.5); ALKALINE PHOSPHATASE 87 U/L (45-117); BUN 14 mg/dl (7-24); CHLORIDE 108 mmol/L (98-107); CREATININE 0.72 mg/dL (0.55-1.02); POTASSIUM 3.6 mmol/L (3.5-5.1); SGOT/AST 18 IU/L (3-35); SGPT/ALT 19 U/L (12-78); SODIUM 143 mmol/L (136-145); TOTAL PROTEIN 7.4 gm/dL (6.4-8.2)
[2020-12-12 06:28] LABS: TROPONIN I < 0.015 ng/ml (<0.045)
[2020-12-12 06:32] LABS: EPITHELIAL CELLS 0-2
[2020-12-12 09:26] LABS: URINE AMPHETAMINES < 1000 (1000ng/ml); URINE BARBITURATES < 200 (200ng/ml); URINE BENZODIAZEPINES < 200 (200ng/ml); URINE CANNABINOIDS (THC) < 50 (50ng/ml); URINE COCAINE < 300 (300ng/ml); URINE METHADONE < 300 (300ng/ml); URINE OPIATES < 300 (300ng/ml)
[2020-12-12 09:27] LABS: URINE PHENCYCLIDINE < 25 (25ng/ml)
== END 2020-12-12 13:00 | disposition home or self-care (01) ==
LOC: ED 04:59
PROVIDERS: Emergency Medicine
DX: R10.9 Unspecified abdominal pain (principal); R42 Dizziness and giddiness; I10 Essential (primary) hypertension; F41.9 Anxiety disorder, unspecified; I25.10 Atherosclerotic heart disease of native coronary artery without angina pectoris; K21.9 Gastro-esophageal reflux disease without esophagitis; E78.5 Hyperlipidemia, unspecified; E03.9 Hypothyroidism, unspecified; Z88.0 Allergy status to penicillin; Z88.2 Allergy status to sulfonamides; Z88.8 Allergy status to other drugs, medicaments and biological substances; Z79.899 Other long term (current) drug therapy; Z79.82 Long term (current) use of aspirin; Z95.818 Presence of other cardiac implants and grafts; Z98.890 Other specified postprocedural states

== ENCOUNTER 2020-12-18 15:11 | Inpatient (IN) | payer MEDICARE ==
[~2020-12-18] VITALS: Ht 152.4 cm; Wt 59.2 kg
[2020-12-18 15:18] VITALS: BP 168/80
[2020-12-18 16:29] LABS: BASO % 0.7 % (0.0-1.0); EOS % 0.2 % (1.0-4.0); HEMATOCRIT 40.4 % (37.0-47.0); LYMPH # 0.7 10*3/uL (1.3-4.4); LYMPH % 12.6 % (27.0-41.0); MEAN CELL VOLUME 93.3 fl (81.0-99.0); MEAN CORPUSCULAR HGB 30.9 pg (27.0-31.0); MEAN CORPUSCULAR HGB CONC 33.2 g/dl (33.0-37.0); MEAN PLATELET VOLUME 10.3 fl (9.6-12.3); MONO # 0.2 10*3/uL (0.1-1.0); MONO % 4.4 % (3.0-9.0); NEUT # 4.5 10*3/uL (2.3-7.9); NEUT % 81.9 % (47.0-73.0); PLATELET COUNT AUTOMATED 202 10*3/uL (130-400); RED BLOOD COUNT 4.33 10*6/uL (4.10-5.10); RED CELL DISTRI WIDTH 12.6 % (0-14.5); WHITE BLOOD COUNT 5.5 10*3/uL (4.8-10.8)
[2020-12-18 16:40] LABS: ACT PARTIAL THROMBO TIME 26.5 SECONDS (20.0-32.1)
[2020-12-18 16:45] LABS: ALBUMIN 3.5 gm/dl (3.1-4.5); ALKALINE PHOSPHATASE 101 U/L (45-117); BUN 14 mg/dl (7-24); CHLORIDE 102 mmol/L (98-107); CREATININE 0.72 mg/dL (0.55-1.02); LIPASE 122 U/L (73-393); POTASSIUM 4.2 mmol/L (3.5-5.1); SGOT/AST 24 IU/L (3-35); SGPT/ALT 22 U/L (12-78); SODIUM 134 mmol/L (136-145); TOTAL PROTEIN 8.1 gm/dL (6.4-8.2)
[2020-12-18 16:47] LABS: TROPONIN I 0.071 ng/ml (<0.045)
[2020-12-18 18:35] LABS: BILIRUBIN Negative (Negative); BLOOD Negative (Negative); CLARITY Clear (Clear); COLOR Yellow (Yellow); GLUCOSE Negative (Negative); KETONE 3+ (Negative); LEUKO ESTERASE Negative (Negative); NITRITE Negative (Negative); PH 6.5 (4.5-8.0); UROBILINOGEN 0.2 E.U./dl (0.0-1.0)
[2020-12-18 18:48] LABS: BACTERIA TRACE; WBC 0-2 wbc/hpf (0-5)
[2020-12-18 21:05] VITALS: BP 185/94
[2020-12-19] VITALS: BP 167/67
[2020-12-19 06:43] LABS: BASO % 0.7 % (0.0-1.0); EOS # 0.2 10*3/uL (0.0-0.4); EOS % 4.2 % (1.0-4.0); HEMATOCRIT 35.8 % (37.0-47.0); LYMPH # 1.6 10*3/uL (1.3-4.4); LYMPH % 29.4 % (27.0-41.0); MEAN CELL VOLUME 94.5 fl (81.0-99.0); MEAN CORPUSCULAR HGB 30.6 pg (27.0-31.0); MEAN CORPUSCULAR HGB CONC 32.4 g/dl (33.0-37.0); MEAN PLATELET VOLUME 10.8 fl (9.6-12.3); MONO # 0.5 10*3/uL (0.1-1.0); MONO % 9.4 % (3.0-9.0); NEUT # 3.1 10*3/uL (2.3-7.9); NEUT % 56.1 % (47.0-73.0); PLATELET COUNT AUTOMATED 195 10*3/uL (130-400); RED BLOOD COUNT 3.79 10*6/uL (4.10-5.10); RED CELL DISTRI WIDTH 12.9 % (0-14.5); WHITE BLOOD COUNT 5.5 10*3/uL (4.8-10.8)
[2020-12-19 07:27] LABS: CHLORIDE 110 mmol/L (98-107); SODIUM 140 mmol/L (136-145)
[2020-12-19 07:36] LABS: ALBUMIN 2.8 gm/dl (3.1-4.5); ALKALINE PHOSPHATASE 78 U/L (45-117); BUN 18 mg/dl (7-24); CREATININE 0.71 mg/dL (0.55-1.02); SGOT/AST 21 IU/L (3-35); SGPT/ALT 17 U/L (12-78); TOTAL PROTEIN 6.7 gm/dL (6.4-8.2)
[2020-12-19 07:46] LABS: VITAMIN D, 25-HYDROXY 67.1 ng/mL (30-100)
[2020-12-19 08:00] VITALS: BP 152/68
[2020-12-19 12:00] VITALS: BP 135/70
[2020-12-19 16:00] VITALS: BP 122/60; BP 135/74
[2020-12-19 20:00] VITALS: BP 115/49
[2020-12-20] VITALS: BP 115/49
[2020-12-20 05:55] LABS: BUN 24 mg/dl (7-24); CHLORIDE 108 mmol/L (98-107); CREATININE 0.76 mg/dL (0.55-1.02); POTASSIUM 4.1 mmol/L (3.5-5.1); SODIUM 138 mmol/L (136-145)
[2020-12-20 06:07] LABS: TROPONIN I < 0.015 ng/ml (<0.045)
[2020-12-20 06:21] LABS: BASO % 0.7 % (0.0-1.0); EOS # 0.3 10*3/uL (0.0-0.4); EOS % 4.5 % (1.0-4.0); HEMATOCRIT 35.8 % (37.0-47.0); LYMPH # 1.9 10*3/uL (1.3-4.4); LYMPH % 33.8 % (27.0-41.0); MEAN CELL VOLUME 95.7 fl (81.0-99.0); MEAN CORPUSCULAR HGB 31.6 pg (27.0-31.0); MONO # 0.5 10*3/uL (0.1-1.0); MONO % 9.6 % (3.0-9.0); NEUT # 2.8 10*3/uL (2.3-7.9); NEUT % 51.2 % (47.0-73.0); PLATELET COUNT AUTOMATED 184 10*3/uL (130-400); RED BLOOD COUNT 3.74 10*6/uL (4.10-5.10); RED CELL DISTRI WIDTH 12.9 % (0-14.5); WHITE BLOOD COUNT 5.5 10*3/uL (4.8-10.8)
[2020-12-20 12:00] VITALS: BP 110/68
[2020-12-20 16:00] VITALS: BP 157/73
[2020-12-20 20:00] VITALS: BP 110/48
[2020-12-21] VITALS: BP 109/62
[2020-12-21 08:00] VITALS: BP 119/57; BP 129/58
[2020-12-21 15:48] VITALS: BP 138/96
[2020-12-21 20:00] VITALS: BP 115/49
[2020-12-22] VITALS: BP 110/53
[2020-12-22 06:14] LABS: BASO # 0.1 10*3/uL (0.0-0.1); BASO % 1.1 % (0.0-1.0); EOS # 0.4 10*3/uL (0.0-0.4); HEMATOCRIT 35.4 % (37.0-47.0); LYMPH # 1.6 10*3/uL (1.3-4.4); LYMPH % 29.4 % (27.0-41.0); MEAN CELL VOLUME 94.9 fl (81.0-99.0); MEAN CORPUSCULAR HGB 31.1 pg (27.0-31.0); MEAN CORPUSCULAR HGB CONC 32.8 g/dl (33.0-37.0); MONO # 0.6 10*3/uL (0.1-1.0); MONO % 10.5 % (3.0-9.0); NEUT # 2.8 10*3/uL (2.3-7.9); NEUT % 51.6 % (47.0-73.0); PLATELET COUNT AUTOMATED 187 10*3/uL (130-400); RED BLOOD COUNT 3.73 10*6/uL (4.10-5.10); RED CELL DISTRI WIDTH 12.9 % (0-14.5); WHITE BLOOD COUNT 5.4 10*3/uL (4.8-10.8)
[2020-12-22 06:29] LABS: BUN 25 mg/dl (7-24); CHLORIDE 105 mmol/L (98-107); POTASSIUM 3.9 mmol/L (3.5-5.1); SODIUM 137 mmol/L (136-145)
[2020-12-22 08:00] VITALS: BP 132/72
[2020-12-22 12:00] VITALS: BP 133/74
[2020-12-22 16:00] VITALS: BP 104/45
[2020-12-22 20:00] VITALS: BP 110/57
[2020-12-23] VITALS: BP 122/44
[2020-12-23 08:00] VITALS: BP 128/59
[2020-12-23 12:00] VITALS: BP 124/46
[2020-12-23 16:00] VITALS: BP 108/57
== END 2020-12-23 18:33 | DRG 149 ==
LOC: ED 15:11 → EDHOLD 18:06 → 5E 18:06
PROVIDERS: Internal Medicine; Physician Assistant; ADMIT Internal Medicine; ATTEND Internal Medicine
DX: H81.10 Benign paroxysmal vertigo, unspecified ear (principal); E87.1 Hypo-osmolality and hyponatremia; E44.1 Mild protein-calorie malnutrition; I25.10 Atherosclerotic heart disease of native coronary artery without angina pectoris; E03.9 Hypothyroidism, unspecified; K21.9 Gastro-esophageal reflux disease without esophagitis; I73.9 Peripheral vascular disease, unspecified; F22 Delusional disorders; I25.89 Other forms of chronic ischemic heart disease; I65.29 Occlusion and stenosis of unspecified carotid artery; I35.1 Nonrheumatic aortic (valve) insufficiency; Z20.822 Contact with and (suspected) exposure to COVID-19; E86.0 Dehydration; R26.2 Difficulty in walking, not elsewhere classified; E78.2 Mixed hyperlipidemia; I10 Essential (primary) hypertension; N32.81 Overactive bladder; G30.9 Alzheimer's disease, unspecified; F02.80 Dementia in other diseases classified elsewhere, unspecified severity, without behavioral disturbance, psychotic disturbance, mood disturbance, and anxiety; Z88.0 Allergy status to penicillin; Z88.2 Allergy status to sulfonamides; Z88.1 Allergy status to other antibiotic agents; Z88.8 Allergy status to other drugs, medicaments and biological substances; Z82.49 Family history of ischemic heart disease and other diseases of the circulatory system; Z95.5 Presence of coronary angioplasty implant and graft; Z79.82 Long term (current) use of aspirin; Z79.899 Other long term (current) drug therapy; Z68.25 Body mass index [BMI] 25.0-25.9, adult; I25.9 Chronic ischemic heart disease, unspecified